=== PATIENT | female | born 1995 | race Two or more races ===

== ENCOUNTER 2021-11-21 10:16 | Emergency (ER) | payer OTHER, SELFPAY ==
--- NOTE | ~2021-11-21 | CT_ITS ---
EXAMINATION: CT LUMBAR SPINE WITHOUT CONTRAST CT SACRUM WITHOUT CONTRAST CLINICAL INFORMATION: Severe lower back and sacral pain. COMPARISON: None available. TECHNIQUE: Multidetector helical imaging of the lumbar spine and sacrum was obtained without intravenous contrast. Multiple axial reformats and coronal/sagittal reconstructions were created the technologist workstation for review. This CT examination was performed using dose optimization techniques as appropriate, variously including the following: *Automated exposure control. *Adjustment of mA and/or kV according to patient size (this includes techniques or standardized protocols for targeted exams where dose is matched to indication/reason for exam; i.e. extremities or head). *Use of iterative reconstruction technique. DLP: 894 mGy-cm FINDINGS: Mild left convex curvature of the lumbar spine. Straightening of the normal lumbar lordosis. Otherwise, normal anatomic alignment. Chronic-appearing limbus vertebra with well ossified osseous fragment along the anterior-superior corner of L4. No evidence of acute fracture or traumatic subluxation. The vertebral body heights are maintained. Moderate degenerative disc disease at L2-L3 and L3-L4. Mild degenerative disc disease at L5-S1. Normal alignment of the sacrum and coccyx. No cortical disruption to suggest acute fracture of the sacrum. Normal alignment of the sacroiliac joints. Mild subchondral sclerosis on the iliac sides of the sacroiliac joints bilaterally without overt erosions. No suspicious lytic or sclerotic osseous lesions. No significant abnormalities of the paraspinal musculature. There is a round lesion associated with the left ovary that is largely lipid rich with an internal soft tissue attenuating nodule, measuring nodule 3.7 x 3.5 x 4.2 cm. Otherwise, limited evaluation of the intra-abdominal structures without significant abnormalities. The abdominal aorta is of normal contour and caliber. AXIAL SPINAL LEVELS: L1-L2: Normal annular contour. There is mild bilateral facet joint arthropathy. There is no neural foraminal stenosis. There is no demonstrated spinal canal stenosis. L2-L3: Normal annular contour. There is mild bilateral facet joint arthropathy. There is no neural foraminal stenosis. There is no demonstrated spinal canal stenosis. L3-L4: Moderate diffuse disc bulge. There is moderate left and mild right facet joint arthropathy. There is mild left and no right neural foraminal stenosis. There is no demonstrated spinal canal stenosis. L4-L5: Mild diffuse disc bulge with superimposed shallow left foraminal disc protrusion. There is mild bilateral facet joint arthropathy. There is mild left and no right neural foraminal stenosis. There is no demonstrated spinal canal stenosis. L5-S1: Mild diffuse disc bulge with superimposed small central disc extrusion with mild inferior migration. There is mild bilateral facet joint arthropathy. There is mild left and no right neural foraminal stenosis. There is no demonstrated spinal canal stenosis. CT/CT lumbar spine wo con IMPRESSION: 1. No evidence of acute fracture or traumatic subluxation of the lumbar spine or sacrum. 2. Mild to moderate multilevel degenerative spondyloarthropathy of the lumbar spine as described in detail above. On this limited exam without intrathecal contrast, there is no demonstrated overt spinal canal stenosis. 3. There is a 4.2 cm lipid rich lesion associated with the left ovary suggestive of an underlying dermoid. Recommend further characterization with dedicated pelvic evaluation. This critical result was discussed with SALO Bahena at 14:27 on 11/21/2021 and it was ascertained that the content and urgency of the report was understood at the time of direct communication.
--- NOTE | ~2021-11-21 | US_ITS ---
EXAMINATION: US PELVIS CLINICAL INFORMATION: Characterized left ovarian mass COMPARISON: CT performed earlier same date. TECHNIQUE: Ultrasound of the pelvis is performed using both transabdominal and transvaginal transducers along with Doppler. Transvaginal imaging is performed due to inadequate visualization transabdominally. FINDINGS: Uterus: The uterus is anteverted and measures 8.3 x 2.6 x 3.6 cm. The double wall endometrial thickness is 0.5 mm. The uterus is smooth in contour and has normal myometrial echogenicity. No visible fibroid. Adnexa: Both ovaries are visualized. There is normal color flow to the adnexa. There is no ovarian torsion. There is no pelvic ascites or fluid collection. Right ovary measures 2.1 x 1.4 x 1.5 cm. Left ovary is splayed about 4.5 x 3.5 x 3.6 cm mass containing an echogenic eccentric focus compatible with multifocal fat surrounded by sebum containing fluid. 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 Given the typically slow rate of growth of such lesions, annual follow-up is recommended (while lesions are less than 7 cm).
--- NOTE | ~2021-11-21 | US_ITS ---
EXAMINATION: US PELVIS CLINICAL INFORMATION: Characterized left ovarian mass COMPARISON: CT performed earlier same date. TECHNIQUE: Ultrasound of the pelvis is performed using both transabdominal and transvaginal transducers along with Doppler. Transvaginal imaging is performed due to inadequate visualization transabdominally. FINDINGS: Uterus: The uterus is anteverted and measures 8.3 x 2.6 x 3.6 cm. The double wall endometrial thickness is 0.5 mm. The uterus is smooth in contour and has normal myometrial echogenicity. No visible fibroid. Adnexa: Both ovaries are visualized. There is normal color flow to the adnexa. There is no ovarian torsion. There is no pelvic ascites or fluid collection. Right ovary measures 2.1 x 1.4 x 1.5 cm. Left ovary is splayed about 4.5 x 3.5 x 3.6 cm mass containing an echogenic eccentric focus compatible with multifocal fat surrounded by sebum containing fluid. 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 Given the typically slow rate of growth of such lesions, annual follow-up is recommended (while lesions are less than 7 cm).
[2021-11-21 10:46] VITALS: BP 118/87; PULSE 86; RESP 16; TEMP 36.4; O2SAT 99; BMI 29.7
--- NOTE | 2021-11-21 11:12 | ED.BACK ---
HPI - Back Pain/Injury General Chief Complaint: Back Pain/Injury Stated Complaint: low back pain Time Seen by Provider: 11/21/21 10:58 Source: patient Mode of arrival: ambulatory Limitations: no limitations History of Present Illness HPI Narrative: 26-year-old female presents for low back pain that started 6 days ago. Patient was walking at her house, she hurt her back pop. The pain has been worsening, Tylenol is not helping. Patient has past medical history of lupus , with seizures when she was a child. The pain is severe and it hurts to move. No fevers, no numbness or tingling, no leg weakness, no saddle paresthesias, no incontinence of bowel or bladder, no urinary retention, no history of IV drug use, no past personal history of cancer. Related Data Previous Rx's Medication Instructions Recorded cyclobenzaprine 10 mg tablet 10 mg PO BEDTIME 5 days #5 tabs 11/21/21 ketorolac 10 mg tablet 10 mg PO TID 5 days #15 tabs 11/21/21 Allergies Allergy/AdvReac Type Severity Reaction Status Date / Time Sulfa (Sulfonamide Allergy Hives Verified 11/21/21 10:45 Antibiotics) Review of Systems Constitutional: Constitutional: Denies body ache(s), Denies chills, Denies fatigue, Denies fever(s), Denies malaise and Denies weakness Eyes: Eyes: Denies diplopia Cardiovascular: Cardiovascular: Denies chest pain, Denies syncope, Denies leg edema, Denies lightheadedness, Denies Loss of Consciousness, Denies palpitations and Denies dyspnea Respiratory: Respiratory: Denies chest congestion, Denies cough and Denies dyspnea Gastrointestinal: Gastrointestinal: Denies abdominal pain, Denies hematochezia, Denies constipation, Denies diarrhea, Denies nausea and Denies vomiting Musculoskeletal: Musculoskeletal: Reports back pain Neurologic: Denies confusion, Denies syncope and Denies weakness Psychiatric: Psychiatric: Denies anxiety, Denies confusion and Denies depression Endocrine: Endocrine: Denies fatigue and Denies palpitations [facility] Past Medical History [facility] Narrative: lupus Social History Social History Advance Directives: No Advance Directives Information Provided: No Physical Exam Vital Signs: Vital Signs: Last Vital Signs Temp 97.6 F 11/21/21 10:46 Pulse 86 11/21/21 10:46 Resp 16 11/21/21 10:46 BP 118/87 11/21/21 10:46 Pulse Ox 99 11/21/21 10:46 O2 Del Method 11/21/21 10:46 BMI result Body Mass Index 29.7 Const: General: No confusion Nutritional Appearance: well nourished Orientation/consciousness: No confusion Limitations: no limitations Eyes: Conjunctivae: conjunctivae normal Pupils: Equal, round and reactive pupils present EOM: EOMs intact bilaterally Neck: Neck: Yes full ROM, Yes no lymphadenopathy and Yes supple Resp: Effort & Inspection: normal respiratory effort and able to speak in complete sentences Auscultation: clear to auscultation bilaterally, no crackles, no rales, no rhonchi and no wheezes Cardio: Rate: regular rate Rhythm: regular rhythm Heart sounds: S1 normal heart sound present and S2 normal heart sound present GI: Inspection: Yes normal to inspection Palpation (GI): Soft to palpation, nontender, no guarding and not rigid Percussion: Yes normal to percussion Auscultation: normal bowel sounds : General: Yes no CVA tenderness Back/Spine/Pelvis: Back: no CVA tenderness Cervical Spine: normal cervical lordosis, cervical ROM normal, No Cervical spine tenderness, No step off deformity and No cervical ROM abnormal Thoracic/Lumbar Spine: No thoraco-lumbar spasm, No thoracic spinal tenderness, lumbar spinal tenderness at L4 and at L5 and straight leg raise positive bilateral Pelvis: no pain with anterior-posterior compression, no pain with lateral compression and buttock tenderness on the left Sacrum: tenderness midline Skin: General skin exam: no rashes or lesions noted Neuro: General: No confusion Cranial nerves: Yes Equal, round and reactive pupils present Extrem: General: Yes normal to inspection and Yes full ROM Psych: Appearance: grossly normal Affect: normal affect Attitude: cooperative Thought process: Normal thought process present Course Course Course Narrative: 26-year-old female presents for sudden atraumatic back pain that occurred 6 days ago and is worsening. On exam, patient has stable vitals, she is point tender over her L4-L5 vertebrae, tender over her midline sacrum. Patient has a positive bilateral straight leg raise, she is tender to palpate over her left buttock. Afebrile with stable vitals Reevaluation(s) Reevaluation #1: Radiologist called and stated that the lumbar spine and sacral spine look okay although there are degenerative changes. Stated that an incidental finding of a 3.5 cm lesion in the left ovary looked like a dermoid, with fatty tissue and internal nodules. Possibly malignant. Will get pelvic ultrasound, follow-up with OBGYN, patient says her pain is a little better with the oxycodone, gave ketorolac and Flexeril CT/CT lumbar spine wo con IMPRESSION: 1. No evidence of acute fracture or traumatic subluxation of the lumbar spine or sacrum. ? 2. Mild to moderate multilevel degenerative spondyloarthropathy of the lumbar spine as described in detail above. On this limited exam without intrathecal contrast, there is no demonstrated overt spinal canal stenosis. ? 3. There is a 4.2 cm lipid rich lesion associated with the left ovary suggestive of an underlying dermoid. Recommend further characterization with dedicated pelvic evaluation. ? This critical result was discussed with SALO Bahena at 14:27 on 11/21/2021 and it was ascertained that the content and urgency of the report was understood at the time of direct communication. Reevaluation #2: FINDINGS: Uterus: The uterus is anteverted and measures 8.3 x 2.6 x 3.6 cm. The double wall endometrial thickness is 0.5 mm.? The uterus is smooth in contour and has normal myometrial echogenicity. ? No visible fibroid. Adnexa: Both ovaries are visualized. There is normal color flow to the adnexa. There is no ovarian torsion.? There is no pelvic ascites or fluid collection. Right ovary measures 2.1 x 1.4 x 1.5 cm. Left ovary is splayed about 4.5 x 3.5 x 3.6 cm mass containing an echogenic eccentric focus compatible with multifocal fat surrounded by sebum containing fluid. 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 Given the typically slow rate of growth of such lesions, annual follow-up is recommended (while lesions are less than 7 cm). MDM - Back Pain/Injury Lab Data Labs: Lab Results 11/21/21 11/21/21 Range/Units 11:54 11:54 Urine Color YELLOW Urine Appearance CLEAR Urine pH 5.5 (5.0-8.0) Ur Specific [place] 1.010 (1.005-1.025) Urine Protein NEG (NEG-TRACE) MG/DL Urine Glucose (UA) NEG (NEG) MG/DL Urine Ketones NEG (NEG) MG/DL Urine Blood NEG (NEG) Urine Nitrite NEG (NEG) Ur Leukocyte Esterase NEG (NEG) Urine Test NEGATIVE (NEGATIVE) Discharge Plan Discharge Clinical Impression: Spondylo-arthropathy, Cyst, ovary, dermoid, Back pain Patient Disposition: Home, Self-Care Additional Instructions: Please call your primary care provider to follow up are your spine in addition if you do not hear from our BG and by tomorrow afternoon, please call them at the following number [phone] I have referred you to the OBGYN so they should be calling you Please take ketorolac as prescribed, please take Flexeril at night. Please do not take any ibuprofen containing products while you are taking the ketorolac Please return to emergency room for any new or concerning symptoms including leg weakness, incontinence of bowel or bladder, numbness or tingling in your groin, or fevers Prescriptions: New ketorolac 10 mg tablet 10 mg PO TID 5 Days Qty: 15 0RF cyclobenzaprine 10 mg tablet 10 mg PO BEDTIME 5 Days Qty: 5 0RF Referrals: Pratik Monge MD [Physician] - Stand Alone Forms: Work/School Release Interventions: ED Discharge Assessment Last Done: 11/21/21 17:46 Discharge Date/Time: 11/21/21 17:47
[2021-11-21] MEDS: oxyCODONE HCl Immed Release 5 MG TABLET 10 MG PO (11:27)
[2021-11-21 12:10] LABS: UPreg QC Valid YES; Urine Pregnancy NEGATIVE (NEGATIVE)
[2021-11-21 12:11] LABS: Appearance Urine CLEAR; Color Urine YELLOW; Glucose Urine UA NEG (NEG); Leukocyte Esterase Urine NEG (NEG); Nitrite Urine NEG (NEG); PH 5.5 (5.0-8.0); Urine Blood NEG (NEG); Urine Ketones NEG (NEG); Urine Protein NEG (NEG-TRACE)
[2021-11-21] MEDS: Cyclobenzaprine HCl 10 MG TABLET PO (15:21)
[2021-11-21] MEDS: Ketorolac Tromethamine 15 MG/ML VIAL IM (15:21)
== END 2021-11-21 17:47 | disposition home or self-care (01) ==
PROVIDERS: Physician Assistant; Emergency Provider Emergency Medicine
DX: M47.896 Other spondylosis, lumbar region (principal); N83.202 Unspecified ovarian cyst, left side; M54.50 Low back pain, unspecified; R10.2 Pelvic and perineal pain; Z79.899 Other long term (current) drug therapy
CPT/HCPCS: 72131; 72192; 76830; 76856; 81003; 81025; 93975; 96372; 99284; J1885

== ENCOUNTER 2021-12-18 11:42 | Outpatient (REF) | payer OTHER, SELFPAY ==
[2021-12-18 13:44] LABS: Lactate Dehydrogenase 205 U/L (122-220)
[2021-12-18 13:53] LABS: HCG Quantitative < 2 mIU/mL
[2021-12-18 19:47] LABS: CT PCR NOT DETECTED (Not Detect.); NG PCR NOT DETECTED (Not Detect.)
[2021-12-20 13:21] LABS: Alpha Fetoprotein 2.5 ng/mL
[2021-12-21 15:06] LABS: Anti-Mullerian Hormone-Female 0.66 ng/mL (0.69-13.39)
[2021-12-21 19:27] LABS: Inhibin B <10 pg/mL
== END 2021-12-18 11:43 | disposition home or self-care (01) ==
LOC: HO.LAB 11:42
PROVIDERS: Visit Provider Obstetrics & Gynecology
DX: Z32.02 Encounter for pregnancy test, result negative (principal); D27.9 Benign neoplasm of unspecified ovary
CPT/HCPCS: 36415; 81025; 82105; 82397; 83615; 84702; 86336; 87491; 87591; 99212

== ENCOUNTER 2022-03-20 18:35 | Emergency (ER) | payer OTHER, SELFPAY ==
[2022-03-20 18:47] VITALS: BP 95/70; PULSE 89; RESP 18; TEMP 36.1; O2SAT 98; BMI 31.3
--- NOTE | 2022-03-21 00:01 | ED_ITS ---
HPI - Back Pain/Injury General Chief Complaint: Back Pain/Injury Stated Complaint: left side lower back pain Time Seen by Provider: 03/20/22 23:49 Source: patient Limitations: no limitations History of Present Illness HPI Narrative: This is a 26-year-old female with history of lupus who complains of pain in her left lower back which began this morning when she got up and began walking. She felt a click in her back. She had had a similar experience in November and was seen here, had a CT scan that did show degenerative changes in her lumbar spine and sacroiliac joint. Patient that time was treated with ketorolac and Flexeril and had improvement in her symptoms. She does take prednisone 5 mg daily for her lupus. She denies any numbness or weakness in her legs. Pain is worst in the left sacroiliac area. She denies any abdominal pain. She notes that when she was evaluated here in November on the CT scan they did find an ovarian cyst-review the records reveal that it was a dermoid cyst. Related Data Home Medications Medication Instructions Recorded Confirmed hydroxychloroquine 200 mg tablet 200 mg PO DAILY 12/18/21 (Plaquenil) medroxyprogesterone 400 mg/mL 400 mg IM QWEEK 12/18/21 intramuscular suspension prednisone 10 mg tablet 5 mg PO DAILY 12/18/21 Previous Rx's Medication Instructions Recorded cyclobenzaprine 5 mg tablet 5 mg PO TID PRN muscle spasm #14 03/21/22 tabs ketorolac 10 mg tablet 10 mg PO Q6H PRN pain 5 days #20 03/21/22 tabs Allergies Allergy/AdvReac Type Severity Reaction Status Date / Time Sulfa (Sulfonamide Allergy Hives Verified 12/18/21 11:53 Antibiotics) Review of Systems Constitutional: Constitutional: Denies fever(s) Cardiovascular: Cardiovascular: Reports no additional cardiovascular complaints Respiratory: Respiratory: Reports no additional respiratory complaints Gastrointestinal: Gastrointestinal: Reports no additional gastrointestinal complaints Musculoskeletal: Musculoskeletal: Reports as per [facility] Past Medical History Medical History Lupus Social History Social History Patient Tobacco Use Status: Never used Tobacco Advance Directives: No Advance Directives Information Provided: No Physical Exam Vital Signs: Vital Signs: Last Vital Signs Temp 97.0 F 03/20/22 18:47 Pulse 89 03/20/22 18:47 Resp 18 03/20/22 18:47 BP 95/70 03/20/22 18:47 Pulse Ox 98 03/20/22 18:47 O2 Del Method 03/20/22 18:47 BMI result Body Mass Index 31.3 Const: Other: PERRLA Conj Beebe Mucous membranes moist Throat clear Neck supple Lungs CTA Heart RRR no murmurs rubs or gallops Abd soft, non tender, non distended Spine: Tender left sacroiliac joint area. Extremities no pitting edema Neuro alert and oriented x 3, non focal MDM - Back Pain/Injury MDM Narrative Medical decision making narrative: Old records were reviewed. CT scan had been done in November. No need for repeat imaging. No traumatic injury. Patient was treated with Ketoralac, and Valium, the latter p.o.. She has some proven in her symptoms. Will prescribe Ketoralac for 5 days, Flexeril. She can follow up with her analytics architect Discharge Plan Discharge Clinical Impression: Sacroiliac joint disease Patient Disposition: Home, Self-Care Prescriptions: New ketorolac 10 mg tablet 10 mg PO Q6H PRN (Reason: pain) 5 Days Qty: 20 0RF cyclobenzaprine 5 mg tablet 5 mg PO TID PRN (Reason: muscle spasm) Qty: 14 0RF No Action prednisone 10 mg tablet 5 mg PO DAILY hydroxychloroquine [Plaquenil] 200 mg tablet 200 mg PO DAILY medroxyprogesterone 400 mg/mL suspension 400 mg IM QWEEK
[2022-03-21] MEDS: diazePAM 2 MG TABLET 6 MG PO (00:20)
[2022-03-21] MEDS: Ketorolac Tromethamine 30 MG/ML VIAL IM (00:20)
== END 2022-03-21 01:03 | disposition home or self-care (01) ==
PROVIDERS: Emergency Provider Emergency Medicine; PCP Nurse Practitioner Family
DX: M53.3 Sacrococcygeal disorders, not elsewhere classified (principal); M54.50 Low back pain, unspecified; M32.9 Systemic lupus erythematosus, unspecified
CPT/HCPCS: 96372; 99283; 99284; J1885

== ENCOUNTER 2023-01-28 22:14 | Emergency (ER) | payer OTHER, SELFPAY ==
--- NOTE | ~2023-01-28 | MR_ITS ---
EXAMINATION: MR CERVICAL SPINE WITHOUT AND WITH CONTRAST CLINICAL INFORMATION: Left-sided neck pain, hand weakness, and numbness. COMPARISON: None available. TECHNIQUE: MRI of the cervical spine was performed with routine sequences without and with intravenous contrast. A total of 9 ml of Gadavist was intravenously administered. FINDINGS: The cervical vertebral bodies maintain normal heights and alignment. There is no significant disc height loss. No bone marrow edema is seen. The cord signal appears normal. There is no abnormal enhancement within the cervical spinal canal. The imaged intracranial contents and extraspinal soft tissues appear normal. SPINAL LEVELS: C2-C3: No posterior disc abnormality. No spinal canal or neural foraminal stenosis. C3-C4: No posterior disc abnormality. No spinal canal or neural foraminal stenosis. C4-C5: No posterior disc abnormality. No spinal canal or neural foraminal stenosis. C5-C6: Small central protrusion. No spinal canal or neural foraminal stenosis. C6-C7: No posterior disc abnormality. No spinal canal or neural foraminal stenosis. C7-T1: No posterior disc abnormality. No spinal canal or neural foraminal stenosis. MR/MR cervical spine wo/w con IMPRESSION: No significant abnormality in the cervical spine. Small central protrusion seen at C5-C6. No spinal canal or neural foraminal stenosis. No cord signal abnormality or abnormal enhancement.
--- NOTE | ~2023-01-28 | CT_ITS ---
EXAMINATION: CT ANGIOGRAM HEAD CT ANGIOGRAM NECK CLINICAL INFORMATION: Reason for Exam L facial numbness, neck pain, L hand numbness COMPARISON: None. TECHNIQUE: Initial noncontrast route salesman imaging of the head and neck was performed. Noncontrast head CT was also performed. Test bolus sequences followed by intravenous administration 70 mL of Omnipaque 350. Helical imaging was performed in the axial plane from the aortic arch to the skull vertex. Delayed postcontrast imaging of the head was also performed. The data was processed at the geospatial technologist's workstation for generation of MIP sequences. Angled MIPs and volume rendered reformatted images were also generated at an offline 3D workstation. Stenoses are assessed in accordance with NASCET criteria unless otherwise indicated. DLP: 2278.05 mGy-cm This CT examination was performed using dose optimization techniques as appropriate, variously including the following: *Automated exposure control. *Adjustment of mA and/or kV according to patient size (this includes techniques or standardized protocols for targeted exams where dose is matched to indication/reason for exam; i.e. extremities or head). *Use of iterative reconstruction technique. FINDINGS: CT Head: There is no evidence of acute intracranial hemorrhage or edematous territorial infarction. There is no abnormal attenuation within the brain parenchyma. [place]-white matter differentiation is preserved. The ventricles are normal in size and configuration. No evidence for obstructive hydrocephalus. No abnormal mass effect or midline shift. No extra-axial fluid collections. No pathologic intra-axial enhancement or regional oligemia. No acute soft tissue or osseous abnormalities. The mastoid air cells and paranasal sinuses are clear. CT Neck: The thyroid gland and remaining cervical soft tissues are within normal limits. No significant abnormalities of the cervical spine. There is bulky bilateral axillary lymphadenopathy. CT Upper Chest: The visualized lung apices and upper mediastinum are within normal limits, although suboptimally evaluated due to motion. Neck CTA: Aortic Arch: Normal contour and caliber. Classic 3 vessel branching pattern of the aortic arch. Great Vessel Origins: No significant stenosis of the branch origins. Right Common Carotid Artery: No focal stenosis or occlusion. Cervical Right Internal Carotid Artery: Normal opacification without focal stenosis or occlusion. Left Common Carotid Artery: No focal stenosis or occlusion. Cervical Left Internal Carotid Artery: Normal opacification without focal stenosis or occlusion. Cervical Right Vertebral Artery: No focal stenosis or occlusion. Cervical Left Vertebral Artery: Dominant. No focal stenosis or occlusion. Brain CTA: Intracranial Internal Carotid Arteries: No focal stenosis or occlusion. Right Anterior Cerebral Artery: Normal A1 segment. Normal opacification of the distal [place] segments. Left Anterior Cerebral Artery: Normal A1 segment. Normal opacification of the distal [place] segments. Anterior Communicating Artery: Normal. Right Middle Cerebral Artery: Normal M1 segment of the MCA without focal stenosis or occlusion. Normal arborization of the distal segments. Left Middle Cerebral Artery: Normal M1 segment of the MCA without focal stenosis or occlusion. Normal arborization of the distal segments. Right Vertebral Artery: Normal V4 segment. Left Vertebral Artery: Normal V4 segment. Basilar Artery: Normal without focal stenosis or occlusion. Normal appearance of the proximal superior cerebellar arteries. Right Posterior Cerebral Artery: Normal P1 segment. Normal opacification of the distal CASING [employer]ER segments. Left Posterior Cerebral Artery: Normal P1 segment. Normal opacification of the distal [place] [employer] segments. Normal opacification of the superior sagittal, straight, transverse, and sigmoid sinuses. CT/CT angio head neck IMPRESSION: 1. No acute intracranial abnormality including hemorrhage, mass effect, hydrocephalus, or acute territorial edematous infarction. 2. No arterial high grade stenosis or large vessel occlusion in the head or neck. No evidence of arterial dissection. 3. Bulky bilateral axillary lymphadenopathy of uncertain etiology. Recommend clinical correlation.
--- NOTE | ~2023-01-28 | CT_ITS ---
EXAMINATION: CT CHEST WITHOUT CONTRAST CLINICAL INFORMATION: Lymph node enlargement. COMPARISON: None available. TECHNIQUE: Multidetector volumetric CT imaging of the chest was done. Axial MIP volume rendering provided. Sagittal and coronal reformatted images were obtained. This CT examination was performed using dose optimization techniques as appropriate, variously including the following: *Automated exposure control *Adjustment of mA and/or kV according to patient size (this includes techniques or standardized protocols for targeted exams where dose is matched to indication/reason for exam; i.e. extremities or head) *Use of iterative reconstruction technique DLP: 292 mGy-cm FINDINGS: PIT SHOVEL OPERATOR: Remarkable LUNGS: The lungs are clear with no evidence of inflammation or nodules. MEDIASTINUM: The mediastinum is normal. CORONARY ARTERY CALCIFICATION: None visualized on this study. PLEURA: There is no pleural effusion. No pleural mass or thickening. AXILLA: There are enlarged axillary lymph nodes measuring up to 2.4 cm. UPPER ABDOMEN: Unremarkable. OSSEOUS STRUCTURES: Unremarkable. CT/CT chest wo IV con IMPRESSION: No active cardiopulmonary disease. Enlarged axillary lymph nodes measuring up to 2.4 cm. Clinical follow-up recommended. Fleischner guidelines were followed.
[2023-01-28 22:32] VITALS: BP 111/80; PULSE 85; RESP 16; TEMP 36.6; O2SAT 100; BMI 31.2
[2023-01-28 22:55] LABS: Hematocrit 38.4 % (37.0-47.0); Mean Corpuscular HGB Conc 33.9 g/dl (31.0-35.0); Mean Corpuscular Hemoglobin 28.4 pg (27.0-33.0); Mean Platelet Volume 9.8 fL (9.4-12.3); Platelet Count 260 X10*3/uL (160-400); Red Blood Count 4.57 X10*6/uL (4.20-5.50); Red Cell Distribution Width 13.2 % (11.0-16.0); White Blood Count 3.5 X10*3/uL (4.8-10.8)
[2023-01-28 23:09] LABS: Anion Gap 13 (12-20); Blood Urea Nitrogen 9 mg/dL (9-16); Calcium 10.1 mg/dL (8.4-10.2); Carbon Dioxide 25 mmol/L (22-29); Chloride 107 mmol/L (96-108); Creatinine Clr Calc Pharmacy 127.1; Estimated Glomerular Filt Rate > 60; Glucose Random 92 mg/dL (60-115); Potassium 3.8 mmol/L (3.3-5.1); Sodium 141 mmol/L (135-145)
[2023-01-29] VITALS (7 sets, daily range): BP systolic 91–107; BP diastolic 52–73; PULSE 66–86; RESP 14–18; TEMP 36.4–36.6; O2SAT 97–99
--- NOTE | 2023-01-29 00:32 | ED_ITS ---
HPI - Neuro Symptoms/Deficit General Chief Complaint: Neuro Symptoms/Deficit Stated Complaint: numbness to left side face, arms, fingers Time Seen by Provider: 01/28/23 23:54 Source: patient, family and old records reviewed Mode of arrival: ambulatory Limitations: no limitations History of Present Illness HPI Narrative: 27 yo female with hx of lupus on plaquenil and 5mg prednisone a day reports 1 week of L middle finger numbness and L hand pain that radiates up to the neck. it hurts to move the hand and neck. She denies fevers. She denies overuse at work. She states this has never happened before, no whiplash, neck pain, chiropractic work. She states she sought care today as around noon today her L face felt tingly and has not gone away. She has a mild headache too. Onset (ago): week(s) (1) Timing confirmed by: spouse Location: left face and left arm History of same: No Severity: moderate Quality: tingling and constant Relieving factors: none Exacerbating factors: none Context: gradual onset On Anticoagulants: No Associated symptoms: headaches and weakness Treatments Prior to Arrival: none Related Data Home Medications Medication Instructions Recorded Confirmed hydroxychloroquine 200 mg tablet 200 mg PO DAILY 12/18/21 (Plaquenil) medroxyprogesterone 400 mg/mL 400 mg IM QWEEK 12/18/21 intramuscular suspension prednisone 10 mg tablet 5 mg PO DAILY 12/18/21 Previous Rx's Medication Instructions Recorded cyclobenzaprine 5 mg tablet 5 mg PO TID PRN muscle spasm #14 03/21/22 tabs ketorolac 10 mg tablet 10 mg PO Q6H PRN pain 5 days #20 03/21/22 tabs Allergies Allergy/AdvReac Type Severity Reaction Status Date / Time Sulfa (Sulfonamide Allergy Hives Verified 01/28/23 22:37 Antibiotics) Review of Systems 2 Review of Systems: Constitutional : No Fever, No Chills, No Fatigue ENT/Mouth : No sore throat, No Rhinorrhea Eyes: No Eye Pain, No Swelling, No Redness Cardiovascular : No Chest Pain, No SOB, No Dyspnea on Exertion Respiratory : No Cough, No Sputum Gastrointestinal : No Nausea, No Vomiting, No Diarrhea, No abdominal Pain Genitourinary : No Dysuria, No Urinary Frequency, No Hematuria, Musculoskeletal : pos joint pain, No Myalgias, No Joint Swelling, pos neck pain Skin : No Skin Lesions, No rash Neuro : pos Weakness, pos Numbness, No Dizziness, positive Headache Psych : No Anxiety/Panic, No Depression Heme/Lymph: No Bruising, No Bleeding,No Lymphadenopathy Endocrine : No Polyuria, No Polydipsia All other systems reviewed and are negative PMFSH Past Medical History Attestation statement: The following information was validated with the patient. Medical History Lupus Social History Social History Patient Tobacco Use Status: Never used Tobacco Advance Directives: No Advance Directives Information Provided: No Physical Exam 2 Vital Signs: Vital Signs: Last Vital Signs Temp 97.9 F 01/29/23 00:31 Pulse 70 01/29/23 04:53 Resp 14 01/29/23 04:53 BP 91/52 L 01/29/23 04:53 Pulse Ox 98 01/29/23 04:53 O2 Del Method Room Air 01/29/23 04:53 BMI result Body Mass Index 31.2 Appearance: Alert. Oriented X3. No acute distress. Eyes: Pupils equal, round and reactive to light. ENT: Pharynx normal. Neck: no bruit, + spurling on L side CVS: Normal heart rate and rhythm. Pulses normal. Respiratory: No respiratory distress. Breath sounds normal. Abdomen: Soft and nontender. Skin: Skin warm and dry. Normal skin color. Normal skin turgor. Extremities: ttp in L arm 2+ radial pulse ttp in L forearm and L hand reproduces pain Neuro: Oriented X 3. states L side of face feels more diminished than R, L hand reports she cannot feel L finger unsure but athletics director is less 4/5 on L compared to right but unsure if this is due to pain Course Course Course Narrative: given CTA will obtain CT chest if that is not source I am going to obtain MRI of brain and neck Reevaluation(s) Reevaluation #1: Patient placed in physician observation at 456am. The indication for observation is that the patient needs more time to obtain MRI given symptoms - ordered for MRI. At this time the patient is well developed well nourished, lungs clear, CV RRR, abd nontender, neuro is unchanged. signed out to oncoming attending Medications Administered Discontinued Medications Generic Name Dose Route Start Last Admin Trade Name Cari PRN Reason Stop Dose Admin Iohexol 70 ml 01/29/23 02:39 01/29/23 02:40 Iohexol 350 Mg/Ml 100 Ml Infus..Btl IV 01/29/23 02:40 70 ml ONCE ONE Administration Morphine Sulfate 4 mg 01/29/23 01:01 01/29/23 01:55 Morphine Sulfate 4 Mg/Ml Cartridge IVPUSH 01/29/23 01:02 4 mg ONCE ONE Administration Protocol Ondansetron HCl 4 mg 01/29/23 01:01 01/29/23 01:55 Ondansetron Hcl 4 Mg/2 Ml Vial IVPUSH 01/29/23 01:02 4 mg ONCE ONE Administration Medical Decision Making Medical Decision Making [facility] Narrative: 27 yo female with PMH of lupus here with neck pain, facial numbness, one week of L middle finger numnbess pain and hand weakness vs pain on exam no swelling and pulse intact DVT and ischemia unlikely could be stroke vs radiculopathy vs dissection - radiculopathy seems more likely but the facial numbness is odd. I have ordered, labs IV morphine for pain and CTA of head and neck for dissection/stroke. Differential Diagnosis Differential Diagnoses: The differential diagnosis associated with the presentation includes cervical radiculopathy, dissection, given lupus could be stroke Admission/Observation Consideration of admission/observation: Escalation of care including admission/observation considered observe until MRI Lab Data [facility] Lab Attestation statement: I reviewed the patient's lab results. 01/28/23 22:45 01/28/23 22:45 Labs: Lab Results 01/28/23 Range/Units 22:45 WBC 3.5 L (4.8-10.8) X10*3/uL RBC 4.57 (4.20-5.50) X10*6/uL Hgb 13.0 (12.0-16.0) g/dl Hct 38.4 (37.0-47.0) % MCV 84.0 (80.0-98.0) fL MCH 28.4 (27.0-33.0) pg MCHC 33.9 (31.0-35.0) g/dl RDW 13.2 (11.0-16.0) % Plt Count 260 (160-400) X10*3/uL MPV 9.8 (9.4-12.3) fL Absolute Nucleated RBC 0.000 (0.0-0.012) X10*3/uL Nucleated RBC % (auto) 0.0 (0.0-0.2) /100WBC Sodium 141 (135-145) mmol/L Potassium 3.8 (3.3-5.1) mmol/L Chloride 107 (96-108) mmol/L Carbon Dioxide 25 (22-29) mmol/L Anion Gap 13 (12-20) BUN 9 (9-16) mg/dL Creatinine 0.76 (0.5-1.4) mg/dL Estim Creat Clear Calc 127.1 Estimated GFR > 60 Random Glucose 92 (60-115) mg/dL Calcium 10.1 (8.4-10.2) mg/dL Beta HCG, Quant < 2 mIU/mL Independent Interpretation I performed an independent interpretation of an: EKG and CT Scan (no dissection) Interpretation: Rate: 69 Rhythm: NSR Harvey: normal Normal P waves. Normal CHUCHO. Normal QRS complex. ST T wave : inverted t wave III, no ANDRES qTC: normal prior studies:no acute ischemia The study has been interpreted contemporaneously by me. . Radiology Impression Discussion of test interpretation with radiology: I have reviewed the radiologist's reading. Independent Historian Clinical information obtained from an independent historian. History obtained from or confirmed by: Spouse External Record Review External record reviewed: Inpatient record Discharge Plan Discharge Clinical Impression: Arm paresthesia, left, Cervical radiculopathy, Axillary adenopathy Patient Disposition: Still a Patient Prescriptions: No Action ketorolac 10 mg tablet 10 mg PO Q6H PRN (Reason: pain) 5 Days Qty: 20 0RF cyclobenzaprine 5 mg tablet 5 mg PO TID PRN (Reason: muscle spasm) Qty: 14 0RF prednisone 10 mg tablet 5 mg PO DAILY hydroxychloroquine [Plaquenil] 200 mg tablet 200 mg PO DAILY medroxyprogesterone 400 mg/mL suspension 400 mg IM QWEEK
[2023-01-29 00:44] LABS: HCG Quantitative < 2 mIU/mL
--- NOTE | 2023-01-29 00:58 | ECG_ITS ---
Test Reason : STROKE SYMPTOMS Blood Pressure : / mmHG Vent. Rate : 069 BPM Atrial Rate : 069 BPM P-R Int : 124 ms QRS Dur : 084 ms QT Int : 392 ms P-R-T Axes : 024 014 017 degrees QTc Int : 420 ms Normal sinus rhythm Normal ECG No previous ECGs available Referred By: Cece Lo Electronically Signed By:GABE RED
[2023-01-29] MEDS: ondansetron HCL 4 MG/2 ML VIAL IVPUSH (01:55)
[2023-01-29] MEDS: Morphine Sulfate 4 MG/ML CARTRIDGE IVPUSH ×3 (01:55→15:23)
[2023-01-29] MEDS: iohexoL 350 MG/ML 100 ML INFUS..BTL 70 ML IV (02:40)
[2023-01-29] MEDS: Ketorolac Tromethamine 15 MG/ML VIAL IVPUSH (05:34)
[2023-01-29] MEDS: 0.9 % Sodium Chloride 1,000 ML 999 ML IV (07:12)
--- NOTE | 2023-01-29 07:30 | PC.NURSE ---
axox4, vss, neuros intact, respirations even and unlabored. pt reporting 5/10 L. sided neck pain; pain down L. arm and leg improved per pt; strength equal and strong bilat. ivf infusing. call bowens within reach.
--- NOTE | 2023-01-29 11:23 | PC.NURSE ---
no changes to neuros from previous assessment by this RN.
--- NOTE | 2023-01-29 18:03 | PC.NURSE ---
pt at mri at this time; via wheelchair with vitaliy transporter.
[2023-01-29] MEDS: gadobutroL 10 ML VIAL IVPUSH (18:29)
== END 2023-01-29 19:55 | disposition home or self-care (01) ==
PROVIDERS: Emergency Medicine; Emergency Provider Emergency Medicine; PCP Nurse Practitioner Family
DX: M54.12 Radiculopathy, cervical region (principal); R59.0 Localized enlarged lymph nodes; R20.2 Paresthesia of skin; R20.0 Anesthesia of skin; M32.14 Glomerular disease in systemic lupus erythematosus; Z79.899 Other long term (current) drug therapy
CPT/HCPCS: 36415; 70496; 70498; 71250; 72156; 80048; 84702; 85027; 93005; 96361; 96374; 96375; 96376; 99285; A9585; J1885; J2270; J2405; Q9967

== ENCOUNTER 2023-03-19 14:19 | Outpatient (REF) | payer OTHER, SELFPAY ==
[2023-03-19 17:36] LABS: Basophils Percent Auto 0.3 % (0-2); Eosinophils Absolute Auto 0.1 X10*3/uL (0.0-0.4); Eosinophils Percent Auto 1.7 % (0-4); Hematocrit 39.8 % (37.0-47.0); Hemoglobin 13.3 g/dl (12.0-16.0); Imm Gran Abs Auto 0.01 X10*3/uL (0.00-0.03); Imm Gran Pct Auto 0.3 % (0.0-0.4); Lymphocytes Absolute Auto 1.2 X10*3/uL (1.2-4.9); Lymphocytes Percent Auto 40.6 % (20-40); MANUAL DIFF FLAG SCAN; Mean Corpuscular HGB Conc 33.4 g/dl (31.0-35.0); Mean Corpuscular Hemoglobin 27.9 pg (27.0-33.0); Mean Corpuscular Volume 83.4 fL (80.0-98.0); Mean Platelet Volume 10.1 fL (9.4-12.3); Monocytes Absolute Auto 0.2 X10*3/uL (0.1-1.2); Monocytes Percent Auto 7.4 % (2-11); Neutrophils Absolute Auto 1.5 x10*3/uL (2.0-8.3); Neutrophils Percent Auto 49.7 % (45-73); Platelet Count 235 X10*3/uL (160-400); Red Blood Count 4.77 X10*6/uL (4.20-5.50); Red Cell Distribution Width 13.2 % (11.0-16.0); SCAN SMEAR FLAG 1
[2023-03-19 17:37] LABS: Appearance Urine Clear; Color Urine Yellow; Glucose Urine UA Negative (Negative); Leukocyte Esterase Urine Negative (Negative); Nitrite Urine Negative (Negative); PH 5.5 (5.0-9.0); Specific Gravity - Urine <= 1.005 (1.005-1.025); UMIC TRIGGER UA YES; Urine Blood Moderate (2+) (Negative); Urine Ketones Negative (Negative); Urine Protein Negative (Neg-Trace)
[2023-03-19 17:51] LABS: Rheumatoid Factor < 13.0 IU/mL (<15.0)
[2023-03-19 17:53] LABS: Bacteria Urine None Seen (None Seen); Hyaline Casts Urine 0-2 /LPF (0-2); Squamous Epithelial Cell Urine 0-2 /HPF (0-2); WBC Urine 0-5 /HPF (0-5)
[2023-03-19 17:55] LABS: Creatinine Urine 44.08 mg/dL; Total Protein Urine Random < 7 mg/dL (<12)
[2023-03-19 17:58] LABS: Alanine Aminotransferase 21 U/L (0-31); Alkaline Phosphatase 67 U/L (39-117); Anion Gap 14 (12-20); Aspartate Amino Transferase 24 U/L (5-31); Bilirubin Total 0.5 mg/dL (0.0-1.0); Blood Urea Nitrogen 9 mg/dL (9-16); C Reactive Protein < 0.10 mg/dL (< or = 0.50); Calcium 10.1 mg/dL (8.4-10.2); Carbon Dioxide 24 mmol/L (22-29); Chloride 106 mmol/L (96-108); Estimated Glomerular Filt Rate > 60; Glucose Random 83 mg/dL (60-115); Potassium 3.7 mmol/L (3.3-5.1); Sodium 140 mmol/L (135-145); Total Protein 8.3 g/dL (6.5-8.0)
[2023-03-19 18:10] LABS: SLIDE REVIEW VERIFIED
[2023-03-19 18:33] LABS: Erythrocyte Sedimentation Rate 14 MM/HR (0-20)
[2023-03-20 13:14] LABS: Cardiolipin IgG Ab 5.5 GPL-U/mL; Cardiolipin IgM Ab <2.0 MPL-U/mL
[2023-03-21 23:02] LABS: TS Negative Control Passed; TS Panel A 0; TS Panel B 0; TS Positive Control Passed; TSpotTB Negative (Negative)
[2023-03-23 05:14] LABS: HBS Num1 5.54 mIU/mL (0-7.99); HBc Num1 0.09 S/CO (0.00-0.79); HBsAGNum1 0.53 S/CO (0.00-0.99); Hepatitis B Core Antibody Nonreactive (Nonreactive); Hepatitis B Surface Antigen Negative (Negative); ~HepC Num1 0.06 S/CO (0.00-0.79); ~Hepatitis A Antibody IgM Nonreactive (Nonreactive); ~Hepatitis B Surface Antibody NONREACTIVE (Nonreactive); ~Hepatitis C Antibody Nonreactive (Nonreactive)
[2023-03-23 11:48] LABS: Complement C3 92 mg/dL (83-193)
[2023-03-23 18:29] LABS: Cyclic Citrullinated Peptide <16 UNITS
[2023-03-23 23:09] LABS: Prot Elec - Albumin 4.9 g/dL (3.8-4.8); Prot Elec - Alpha1 0.3 g/dL (0.2-0.3); Prot Elec - Alpha2 0.6 g/dL (0.5-0.9); Prot Elec - Beta 1 0.5 g/dL (0.4-0.6); Prot Elec - Beta 2 0.4 g/dL (0.2-0.5); Prot Elec - Gamma 1.4 g/dL (0.8-1.7)
[2023-03-24 11:28] LABS: IgA 384 mg/dL (47-310); IgG 1447 mg/dL (600-1640); IgM 125 mg/dL (50-300)
[2023-03-24 13:14] LABS: Anti DNA DS Antibody 21 IU/mL; Antibody to SS-A Antigen <1.0 NEG AI (<1.0 NEG); Antibody to SS-B Antigen <1.0 NEG AI (<1.0 NEG); SM/Ribonucleoprotein Ab >8.0 POS AI (<1.0 NEG); Smith Protein >8.0 POS AI (<1.0 NEG)
[2023-03-25 09:59] LABS: Beta-2 Glycoprotein IgA 11.2 U/mL (<20.0); Beta-2 Glycoprotein IgG 18.9 U/mL (<20.0); Beta-2 Glycoprotein IgM <2.0 U/mL (<20.0)
[2023-03-25 14:43] LABS: DNAds, Crithidia Antibody Positive (Negative)
[2023-03-26 15:12] LABS: PTT (LAC) Screen 35 sec (<=40)
[2023-03-26 22:09] LABS: TPMT Activity 15
== END 2023-03-19 14:20 | disposition home or self-care (01) ==
LOC: HO.LAB 14:19
PROVIDERS: PCP Nurse Practitioner Family; Visit Provider Student in an Organized Health Care Education/Training Program
DX: M32.9 Systemic lupus erythematosus, unspecified (principal); M25.50 Pain in unspecified joint; D68.61 Antiphospholipid syndrome; Z79.52 Long term (current) use of systemic steroids; Z11.59 Encounter for screening for other viral diseases; Z11.7 Encounter for testing for latent tuberculosis infection; Z79.624 Long term (current) use of inhibitors of nucleotide synthesis; Z79.899 Other long term (current) drug therapy
CPT/HCPCS: 36415; 80053; 81001; 82570; 82784; 84156; 84165; 84433; 85025; 85597; 85598; 85613; 85652; 85730; 86140; 86146; 86147; 86160; 86200; 86225; 86235; 86255; 86334; 86431; 86481; 86704; 86706; 86709; 86803; 87340; 99202

== ENCOUNTER 2023-03-19 14:19 | Outpatient (AMB) | payer OTHER, SELFPAY ==
[2023-03-19 14:56] VITALS: BP 122/70; PULSE 93; TEMP 36.6; O2SAT 98; BMI 29.8
--- NOTE | 2023-03-19 14:56 | MHC.OFFVIS ---
Intake Vital Signs 03/19/23 14:56 Height 5 ft 7 in Weight 190 lb 7.67 oz BMI 29.8 BP 122/70 Blood Pressure Location Rt brachial Position Sitting Pulse 93 Pulse Source Pulse Oximeter Temp 97.8 F Temp Source Skin Pulse Oximetry (%) 98 Intake Visit Reasons: SLE Intake Note: New pt presents today for consult. C/o joint pain, skin rash. Previously followed by [facility]. Has been out of medications for a long time. Would like to discuss medication/treatment Tank Pumper Required: No Accompanied by: Self / Same As Patient Allergies Sulfa (Sulfonamide Antibiotics) Allergy (Verified 03/19/23 15:01) Hives Medication List - Last Reconciled 03/19/23 by Meera Chatterjee MD hydroxychloroquine (Plaquenil) 200 mg PO DAILY medroxyprogesterone 400 mg IM QWEEK triamcinolone acetonide 0.1% 1 appl topical BID-TID HPI HPI Comments History of Present Illness Details This is at 27-year-old female with SLE who presents as a new patient. 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 Patient was diagnosed with SLE back in 2013. 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 Patient was maintained on hydroxychloroquine 200 mg Twice daily Prednisone 125 mg daily and CellCept 2500 mg daily. Patient apparently had been off CellCept since about 2019. Patient was for about 2 months in 2018 while on CellCept. She had 1 in total and 1 miscarriage. She is unaware of any history of DVT/PE. Patient had not been on any treatment for her SLE for the last 1-2 years as she did not have a machine records units supervisor. She also had not seen Dr. German (nephrology) in a long time. She states that she has a follow-up appointment in May. She mentions that she had lost 30 lb over the last 5-6 months by diet and exercise. She states that she is having diffuse pain especially in her wrists, hands, ankles, knees. The pain is worse in the morning. Associated stiffness that can last a few hours. Over the last month or so she has been having an itchy rash on her right ear and right index. She was prescribed triamcinolone cream by her PCP which helped with the itching but the rash remains. She also mentions that for years her fingers and toes are cold and change color in the cold. She denies any fevers. She denied any oral ulcers. She states however that for many years she gets gum bleeding when brushing her teeth. She denies any blood or froth in urine [facility] Medical History (Updated 03/19/23 @ 16:01 by Meera Chatterjee MD) Nephritis Lupus Surgical History No history of previous surgery Family History Other Family history of heart disease Family hx-breast malignancy Social History Alcohol intake: current Alcohol intake frequency: does not drink Patient Tobacco Use Status: Never used Tobacco Female Reproductive History Menstrual Age of Menarche: 11 Total pregnancies: 1 Ab spontaneous: 0 Review of Systems Const Reports weight loss (Intentional) Musc Reports myalgias, Reports arthralgias and Reports stiffness Skin/Breast Reports pruritus, Reports rash and Reports unusual bruising Physical Exam Vital Signs: Last Vital Signs Temp 97.8 F 03/19/23 14:56 Pulse 93 03/19/23 14:56 BP 122/70 03/19/23 14:56 Pulse Ox 98 03/19/23 14:56 BMI result Body Mass Index 29.8 Const General: cooperative and healthy appearing Nutritional Appearance: overweight Orientation/consciousness: patient oriented x3 Limitations: no limitations HEENT Head: Yes normocephalic and Yes atraumatic Mouth: moist mucous membranes Resp Effort & Inspection: normal respiratory effort and able to speak in complete sentences Auscultation: clear to auscultation bilaterally Cardio Rate: regular rate Rhythm: regular rhythm Heart sounds: S1 normal heart sound present GI Inspection: No distended Palpation (GI): Soft to palpation Skin Other: Neuro General: patient oriented x3 Extrem Other: Bilateral wrist tenderness to palpation and pain with flexion and extension Mild Right 3rd MCP swelling Bilateral diffusely tender MCPs, PIP is and DIP is Normal nailfold capillaroscopy Bilateral ankle tenderness to palpation , without swelling Bilateral knee pain with flexion new Results Reviewed Results Reviewed: Labs 06/2020? DsDNA 37 (elevated) Lupus anticoagulant negative? Beta 2 glycoprotein IgG, IGA, IgM/anti cardiolipin IGG, IgA, IgM negative C3 68 low? UPCr: 0.1 normal Vitamin-D 17.6 CMP unremarkable Urinalysis is normal? ESR 3 CBC unremarkable Labs 01/2023 ESR 14? CRP undetectable CMP unremarkable CBC mild leukopenia at 3.6 with no neutropenia or lymphopenia Assessment & Plan Assessment & Plan (1) Lupus: Comment: dx 2013 +++DEMOND+++DsDNA, leukopenia, oral ulcers, inflammatory arthritis, rash on back suspicious for discoid lupus, class IV nephritis bx 2014, possible raynaud's ON HCQ since 2013 then lost to f/u MMF since 2013 or 2014 stopped around 2019 PDN 1-5 mg daily since then, then lost to f/u Code(s): M32.9 - Systemic lupus erythematosus, unspecified Plan: This is a 27-year-old female with SLE who presents as a new patient. 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 Patient was diagnosed around 2013 and was on hydroxychloroquine 200 mg Twice daily, prednisone 1-5 mg daily and CellCept 2500 mg daily. Per chart review. CellCept was discontinued . Patient is currently off all her meds including hydroxychloroquine and prednisone. Check labs to evaluate disease activity. Restart hydroxychloroquine 200 mg Twice daily. Start prednisone 5 mg daily for 2 weeks then 2.5 mg daily until next visit Patient states that she is currently getting the Depo medroxyprogesterone shot for contraception and would like to know whether she should continue. Will check antiphospholipid antibodies and discuss next visit Follow-up in 1 month (2) Long-term use of hydroxychloroquine: Code(s): Z79.899 - Other rouge sifter and miller (current) drug therapy Plan: Patient stated that she would see her gasateria attendant regularly for Plaquenil screening when she was taking Plaquenil. She does not remember their name. She will look at her records and let me know next visit Plan I spent 47 minutes reviewing patient's chart, evaluating patient, ordering diagnostic workup, counseling patient and documenting in the chart Orders: Orders Complete Blood Count Auto Diff Today M32.9 - Systemic lupus erythematosus, unspecified Erythrocyte Sedimentation Rate Today M32.9 - Systemic lupus erythematosus, unspecified Hepatitis A,B,C Profile Today Z11.59 - Encounter for screening for other viral diseases T Spot TB Today Z11.7 - Encounter for testing for latent tuberculosis infection Anti Extractable Nuclear Ag Today M32.9 - Systemic lupus erythematosus, unspecified Anti DNA DS Antibody Today M32.9 - Systemic lupus erythematosus, unspecified Complement C4 Today M32.9 - Systemic lupus erythematosus, unspecified UA w Microscopic Today M32.9 - Systemic lupus erythematosus, unspecified Rheumatoid Factor Today M25.50 - Pain in unspecified joint Thiopurine Methyltransferase Today Z79.624 - biometrics specialist (current) use of inhibitors of nucleotide synthesis Comprehensive Met. Panel Today M32.9 - Systemic lupus erythematosus, unspecified C Reactive Protein Today M32.9 - Systemic lupus erythematosus, unspecified Immunofixation Pnl, Serum Today M32.9 - Systemic lupus erythematosus, unspecified Protein Electrophoresis, Serum Today M32.9 - Systemic lupus erythematosus, unspecified Complement C3 Today M32.9 - Systemic lupus erythematosus, unspecified DNA Double Stranded-Crithidia Today M32.9 - Systemic lupus erythematosus, unspecified Protein Creatinine Ratio, Ur Today M32.9 - Systemic lupus erythematosus, unspecified Sjogren's Antibodies Today M32.9 - Systemic lupus erythematosus, unspecified Beta-2 Glycoprotein Antibody Today D68.61 - Antiphospholipid syndrome Cardiolipin Antibodies Today D68.61 - Antiphospholipid syndrome Lupus Anticoagulant Panel Today D68.61 - Antiphospholipid syndrome Cyclic Citrullinated Peptide Today M25.50 - Pain in unspecified joint Medications: New prednisone Take 2 tabs by mouth once daily for 2 weeks then remain on 1 tab daily 90 tabs 0RF Changed From hydroxychloroquine (Plaquenil) 200 mg PO DAILY To hydroxychloroquine (Plaquenil) 200 mg PO BID 180 tabs 1RF Coding Level of Care Code New Pt Level 4 (44633) Diagnoses Lupus M32.9 Long-term use of hydroxychloroquine Z79.895
== END 2023-03-19 15:45 | disposition home or self-care (01) ==
PROVIDERS: PCP Nurse Practitioner Family; Visit Provider Student in an Organized Health Care Education/Training Program
DX: M32.9 Systemic lupus erythematosus, unspecified (principal); Z79.899 Other long term (current) drug therapy
CPT/HCPCS: 99204

== ENCOUNTER 2023-05-05 15:22 | Outpatient (AMB) | payer OTHER, SELFPAY ==
--- NOTE | 2023-05-05 15:46 | A.OFFVIS_ITS ---
Intake Vital Signs 05/05/23 15:50 Height 5 ft 7 in Weight 187 lb 2.759 oz BMI 29.3 BP 110/80 Blood Pressure Location Lt brachial Position Sitting Pulse 99 Pulse Source Pulse Oximeter Temp 97 F Temp Source Skin Pulse Oximetry (%) 100 Oxygen Delivery Method Room Air Intake Visit Reasons: SLE Intake Note: Pt last seen 03/19/23 presents today for follow up and test results. Pollution Control Technician Required: No Accompanied by: Self / Same As Patient Allergies Sulfa (Sulfonamide Antibiotics) Allergy (Verified 05/05/23 15:51) Hives Medication List - Last Reconciled 05/05/23 by Meera Chattrejee MD hydroxychloroquine (Plaquenil) 200 mg PO BID medroxyprogesterone 400 mg IM QWEEK prednisone Take 2 tabs by mouth once daily for 2 weeks then remain on 1 tab daily triamcinolone acetonide 0.1% 1 appl topical BID-TID HPI HPI Comments History of Present Illness Details 27-year-old female with SLE returns for follow-up. On hydroxychloroquine 20 mg Twice daily and prednisone 2.5 mg daily. She states that she has good and bad days but overall she feels better especially in terms of her joint pain. Initial history: This is at 27-year-old female with SLE who presents as a new patient. Her previous financial services sales representative left the practice. Patient was diagnosed with SLE back in 2013. 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 Patient was maintained on hydroxychloroquine 200 mg Twice daily Prednisone 125 mg daily and CellCept 2500 mg daily. Patient apparently had been off CellCept since about 2019. Patient was for about 2 months in 2018 while on CellCept. She had 1 in total and 1 miscarriage. She is unaware of any history of DVT/PE. Patient had not been on any treatment for her SLE for the last 1-2 years as she did not have a financial services sales representative. She also had not seen Dr. German (nephrology) in a long time. She states that she has a follow-up appointment in May. She mentions that she had lost 30 lb over the last 5-6 months by diet and exercise. She states that she is having diffuse pain especially in her wrists, hands, ankles, knees. The pain is worse in the morning. Associated stiffness that can last a few hours. Over the last month or so she has been having an itchy rash on her right ear and right index. She was prescribed triamcinolone cream by her PCP which helped with the itching but the rash remains. She also mentions that for years her fingers and toes are cold and change color in the cold. She denies any fevers. She denied any oral ulcers. She states however that for many years she gets gum bleeding when brushing her teeth. She denies any blood or froth in urine [facility] Medical History Nephritis Lupus Surgical History No history of previous surgery Family History Other Family history of heart disease Family hx-breast malignancy Social History Alcohol intake: current Alcohol intake frequency: does not drink Patient Tobacco Use Status: Never used Tobacco Female Reproductive History Menstrual Age of Menarche: 11 Review of Systems Musc Reports arthralgias Physical Exam Vital Signs: Last Vital Signs Temp 97 F 05/05/23 15:50 Pulse 99 05/05/23 15:50 BP 110/80 05/05/23 15:50 Pulse Ox 100 05/05/23 15:50 Oxygen Delivery Method Room Air 05/05/23 15:50 BMI result Body Mass Index 29.3 Const General: cooperative and healthy appearing Nutritional Appearance: overweight Orientation/consciousness: patient oriented x3 Limitations: no limitations HEENT Head: Yes normocephalic and Yes atraumatic Mouth: moist mucous membranes Resp Effort & Inspection: normal respiratory effort and able to speak in complete sentences Auscultation: clear to auscultation bilaterally Cardio Rate: regular rate Rhythm: regular rhythm Heart sounds: S1 normal heart sound present GI Inspection: No distended Palpation (GI): Soft to palpation Skin Other: Rash on right ear resolved Neuro General: patient oriented x3 Extrem Other: No active synovitis today Normal nailfold capillaroscopy Results Reviewed Results Reviewed: Labs 06/2020? DsDNA 37 (elevated) Lupus anticoagulant negative? Beta 2 glycoprotein IgG, IGA, IgM/anti cardiolipin IGG, IgA, IgM negative C3 68 low? UPCr: 0.1 normal Vitamin-D 17.6 CMP unremarkable Urinalysis is normal? ESR 3 CBC unremarkable Labs 01/2023 ESR 14? CRP undetectable CMP unremarkable CBC mild leukopenia at 3.6 with no neutropenia or lymphopenia Assessment & Plan Assessment & Plan (1) Lupus: Comment: dx 2013 +++DEMOND+++DsDNA, leukopenia, oral ulcers, inflammatory arthritis, rash on back suspicious for discoid lupus, class IV nephritis bx 2014, possible raynaud's ON HCQ since 2013 then lost to f/u MMF since 2013 or 2014 stopped around 2019 PDN 1-5 mg daily since then, then lost to f/u HCQ restarted 03/2023 + PDN 2.5 mg Code(s): M32.9 - Systemic lupus erythematosus, unspecified Plan: This is a 27-year-old female with SLE who presents for follow-up. She is on proxy chloroquine to 1 mg Twice daily and prednisone 2.5 mg daily Patient was diagnosed around 2013 and was on hydroxychloroquine 200 mg Twice daily, prednisone 1-5 mg daily and CellCept 2500 mg daily. Per chart review. CellCept was discontinued . Today patient is doing much better overall there are no tender joints on exam, no active rashes, labs with normal inflammatory markers, no proteinuria, dsDNA elevated. Continue hydroxychloroquine 200 mg Twice daily. Continue prednisone 2.5 mg daily for 1 more month then reduce to 1.25 mg daily Labs before next visit in 3 months (2) Long-term use of hydroxychloroquine: Code(s): Z79.899 - Other intermediate manager (current) drug therapy Plan: Patient stated that she would see her psychopaedic nurse regularly for Plaquenil screening when she was taking Plaquenil. She does not remember their name. Advised patient to go back to her psychopaedic nurse and ask them to send me their office notes (3) Encounter for counseling regarding contraception: Code(s): Z30.09 - Encounter for other general counseling and advice on contraception Plan: Per patient she was using the Depo progesterone shots last year and a worked quite well for her and she would like to restart. She was recently evaluated by OBGYN and was told to check with rheumatology 1st Patient has normal inflammatory markers, she does not have any active lupus on exam. Her SLE is well controlled. Her antiphospholipid antibodies are negative. There is no known history of DVT/PE or recurrent miscarriages Depo medroxyprogesterone can be used. There is no contraindication to it at this point. Any estrogen containing contraceptives would not be preferred. Patient does not know the name of her OBGYN. I asked patient to call our office and we can send our office Plan I spent 27 minutes reviewing patient's chart, evaluating patient, ordering diagnostic workup, counseling patient and documenting in the chart Orders: Orders Anti DNA DS Antibody 3 Months M32.9 - Systemic lupus erythematosus, unspecified Complement C3 3 Months M32.9 - Systemic lupus erythematosus, unspecified Erythrocyte Sedimentation Rate 3 Months M32.9 - Systemic lupus erythematosus, unspecified C Reactive Protein 3 Months M32.9 - Systemic lupus erythematosus, unspecified Complete Blood Count Auto Diff 3 Months M32.9 - Systemic lupus erythematosus, unspecified Complement C4 3 Months M32.9 - Systemic lupus erythematosus, unspecified Protein Creatinine Ratio, Ur 3 Months M32.9 - Systemic lupus erythematosus, unspecified UA w Microscopic 3 Months M32.9 - Systemic lupus erythematosus, unspecified Comprehensive Met. Panel 3 Months M32.9 - Systemic lupus erythematosus, unspecified Coding Level of Care Code Est Pt Level 4 (24401) Diagnoses Lupus M32.9 Long-term use of hydroxychloroquine Z79.899 Encounter for counseling regarding contraception Z30.09
[2023-05-05 15:50] VITALS: BP 110/80; PULSE 99; TEMP 36.1; O2SAT 100; BMI 29.3
== END 2023-05-05 16:11 | disposition home or self-care (01) ==
PROVIDERS: PCP Nurse Practitioner Family; Visit Provider Student in an Organized Health Care Education/Training Program
DX: M32.9 Systemic lupus erythematosus, unspecified (principal); Z79.899 Other long term (current) drug therapy; Z30.09 Encounter for other general counseling and advice on contraception
CPT/HCPCS: 99214

== ENCOUNTER → 2023-05-05 15:22 | Outpatient (BNVA) | payer OTHER, SELFPAY | PROVIDERS: PCP Nurse Practitioner Family; Visit Provider Student in an Organized Health Care Education/Training Program | DX: M32.9 Systemic lupus erythematosus, unspecified (principal); Z30.09 Encounter for other general counseling and advice on contraception; Z79.899 Other long term (current) drug therapy | CPT/HCPCS: 99212 ==

== ENCOUNTER 2023-08-03 14:22 | Outpatient (REF) | payer OTHER, SELFPAY ==
[2023-08-03 14:43] LABS: MANUAL DIFF FLAG NO
[2023-08-03 14:50] LABS: Basophils Percent Auto 0.5 % (0-2); Eosinophils Absolute Auto 0.1 X10*3/uL (0.0-0.4); Eosinophils Percent Auto 2.5 % (0-4); Hematocrit 38.3 % (37.0-47.0); Imm Gran Abs Auto 0.02 X10*3/uL (0.00-0.03); Imm Gran Pct Auto 0.5 % (0.0-0.4); Lymphocytes Absolute Auto 1.3 X10*3/uL (1.2-4.9); Lymphocytes Percent Auto 31.7 % (20-40); Mean Corpuscular HGB Conc 33.9 g/dl (31.0-35.0); Mean Corpuscular Hemoglobin 28.7 pg (27.0-33.0); Mean Corpuscular Volume 84.5 fL (80.0-98.0); Mean Platelet Volume 9.5 fL (9.4-12.3); Monocytes Absolute Auto 0.3 X10*3/uL (0.1-1.2); Monocytes Percent Auto 6.2 % (2-11); Neutrophils Absolute Auto 2.4 x10*3/uL (2.0-8.3); Neutrophils Percent Auto 58.6 % (45-73); Platelet Count 228 X10*3/uL (160-400); Red Blood Count 4.53 X10*6/uL (4.20-5.50); Red Cell Distribution Width 13.2 % (11.0-16.0)
[2023-08-03 15:31] LABS: Erythrocyte Sedimentation Rate 9 MM/HR (0-20)
[2023-08-03 15:36] LABS: Alanine Aminotransferase 25 U/L (0-31); Albumin Level 4.4 g/dL (3.5-5.0); Alkaline Phosphatase 70 U/L (39-117); Anion Gap 11 (12-20); Aspartate Amino Transferase 23 U/L (5-31); Bilirubin Total 0.2 mg/dL (0.0-1.0); Blood Urea Nitrogen 8 mg/dL (9-16); C Reactive Protein < 0.04 mg/dL (< or = 0.50); Calcium 9.3 mg/dL (8.4-10.2); Carbon Dioxide 23 mmol/L (22-29); Chloride 108 mmol/L (96-108); Estimated Glomerular Filt Rate > 60; Glucose Random 88 mg/dL (60-115); Potassium 3.9 mmol/L (3.3-5.1); Sodium 138 mmol/L (135-145); Total Protein 7.4 g/dL (6.5-8.0)
[2023-08-03 16:28] LABS: Appearance Urine Clear; Color Urine Yellow; Glucose Urine UA Negative (Negative); Leukocyte Esterase Urine Trace (Negative); Nitrite Urine Negative (Negative); PH 5.5 (5.0-9.0); Specific Gravity - Urine 1.015 (1.005-1.025); UMIC TRIGGER UA YES; Urine Blood Negative (Negative); Urine Ketones Negative (Negative); Urine Protein Negative (Neg-Trace)
[2023-08-03 16:49] LABS: Bacteria Urine 2+ (None Seen); Hyaline Casts Urine 0-2 /LPF (0-2); RBC Urine 0-2 /HPF (0-2); WBC Urine 0-5 /HPF (0-5)
[2023-08-03 16:50] LABS: Creatinine Urine 64.87 mg/dL; Total Protein Urine Random < 7 mg/dL (<12)
[2023-08-04 13:59] LABS: Anti DNA DS Antibody 24 IU/mL
[2023-08-05 13:59] LABS: Complement C3 73 mg/dL (83-193)
== END 2023-08-03 14:23 | disposition home or self-care (01) ==
LOC: HO.LAB 14:22
PROVIDERS: Visit Provider Student in an Organized Health Care Education/Training Program
DX: M32.9 Systemic lupus erythematosus, unspecified (principal)
CPT/HCPCS: 36415; 80053; 81001; 82570; 84156; 85025; 85652; 86140; 86160; 86225

== ENCOUNTER 2023-08-05 14:22 | Outpatient (AMB) | payer OTHER, SELFPAY ==
--- NOTE | 2023-08-05 14:23 | A.OFFVIS_ITS ---
Intake Vital Signs 08/05/23 14:31 Height 5 ft 7 in Weight 186 lb 11.704 oz BMI 29.2 BP 122/70 Blood Pressure Location Lt brachial Position Sitting Pulse 101 H Pulse Source Pulse Oximeter Temp 97.2 F Temp Source Skin Pulse Oximetry (%) 97 Oxygen Delivery Method Room Air Intake Visit Reasons: SLE Intake Note: Patient last seen 05/05/23 presents today for follow up and test results. Oil Winterizer Required: No Accompanied by: Self / Same As Patient Allergies Sulfa (Sulfonamide Antibiotics) Allergy (Verified 08/05/23 14:25) Hives Medication List - Last Reconciled 08/05/23 by Meera Chatterjee MD hydroxychloroquine (Plaquenil) 200 mg PO BID medroxyprogesterone 400 mg IM QWEEK prednisone 5 mg PO DAILY triamcinolone acetonide 0.1% 1 appl topical BID-TID HPI HPI Comments History of Present Illness Details 27-year-old female with SLE returns for follow-up. On hydroxychloroquine 200 mg Twice daily and prednisone 2.5 mg daily. She states that she gets intermittent pain in her ankles and hands but she is doing about the same overall. She stated that she had bunion surgery 3 months ago left foot and it still hurts and left foot become swollen. She was hopeful that the recovery would be quicker and she could go back to work. She states that she gets intermittent rashes on her palms that come and go. She has rashes on her right hand today that started 2 weeks ago. They are a little painful when there is pressure on them. She is doing well otherwise. Denies any fevers. She is using the Depo shot for contraception. Initial history: This is at 27-year-old female with SLE who presents as a new patient. Her previous manager wound care left the practice. Patient was diagnosed with SLE back in 2013. 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 Patient was maintained on hydroxychloroquine 200 mg Twice daily Prednisone 125 mg daily and CellCept 2500 mg daily. Patient apparently had been off CellCept since about 2019. Patient was for about 2 months in 2018 while on CellCept. She had 1 in total and 1 miscarriage. She is unaware of any history of DVT/PE. Patient had not been on any treatment for her SLE for the last 1-2 years as she did not have a manager wound care. She also had not seen Dr. German (nephrology) in a long time. She states that she has a follow-up appointment in May. She mentions that she had lost 30 lb over the last 5-6 months by diet and exercise. She states that she is having diffuse pain especially in her wrists, hands, ankles, knees. The pain is worse in the morning. Associated stiffness that can last a few hours. Over the last month or so she has been having an itchy rash on her right ear and right index. She was prescribed triamcinolone cream by her PCP which helped with the itching but the rash remains. She also mentions that for years her fingers and toes are cold and change color in the cold. She denies any fevers. She denied any oral ulcers. She states however that for many years she gets gum bleeding when brushing her teeth. She denies any blood or froth in urine [facility] Medical History Nephritis Lupus Surgical History No history of previous surgery Family History Other Family history of heart disease Family hx-breast malignancy Social History Alcohol intake: current Alcohol intake frequency: does not drink Patient Tobacco Use Status: Never used Tobacco Female Reproductive History Menstrual Age of Menarche: 11 Review of Systems [facility] Reports arthralgias Skin/Breast Reports lesions Physical Exam Vital Signs: Last Vital Signs Temp 97.2 F 08/05/23 14:31 Pulse 101 H 08/05/23 14:31 BP 122/70 08/05/23 14:31 Pulse Ox 97 08/05/23 14:31 Oxygen Delivery Method Room Air 08/05/23 14:31 BMI result Body Mass Index 29.2 Const General: cooperative and healthy appearing Nutritional Appearance: overweight Orientation/consciousness: patient oriented x3 Limitations: no limitations HEENT Head: Yes normocephalic and Yes atraumatic Mouth: moist mucous membranes Resp Effort & Inspection: normal respiratory effort and able to speak in complete sentences Auscultation: clear to auscultation bilaterally Cardio Rate: regular rate Rhythm: regular rhythm Heart sounds: S1 normal heart sound present GI Inspection: No distended Palpation (GI): Soft to palpation Skin Other: Rash on right ear resolved Neuro General: patient oriented x3 Extrem Other: No active synovitis today Few circular rashes on palmar aspect of fingers measuring 2 mm in diameter, slightly tender to palpation Compression stocking left foot and leg Results Reviewed Results Reviewed: Labs 06/2020? DsDNA 37 (elevated) Lupus anticoagulant negative? Beta 2 glycoprotein IgG, IGA, IgM/anti cardiolipin IGG, IgA, IgM negative C3 68 low? UPCr: 0.1 normal Vitamin-D 17.6 CMP unremarkable Urinalysis is normal? ESR 3 CBC unremarkable Labs 01/2023 ESR 14? CRP undetectable CMP unremarkable CBC mild leukopenia at 3.6 with no neutropenia or lymphopenia Assessment & Plan Assessment & Plan (1) Lupus: Comment: dx 2013 +++DEMOND+++DsDNA, leukopenia, oral ulcers, inflammatory arthritis, rash on back suspicious for discoid lupus, class IV nephritis bx 2014, possible raynaud's ON HCQ since 2013 then lost to f/u MMF since 2013 or 2014 stopped around 2019 PDN 1-5 mg daily since then, then lost to f/u HCQ restarted 03/2023 + PDN 2.5 mg Code(s): M32.9 - Systemic lupus erythematosus, unspecified Plan: This is a 27-year-old female with SLE who presents for follow-up. She is doing well on hydroxychloroquine 200 mg Twice daily and prednisone 2.5 mg daily. Patient was diagnosed around 2013 and was on hydroxychloroquine 200 mg Twice daily, prednisone 1-5 mg daily and CellCept 2500 mg daily. Per chart review. CellCept was discontinued . Today patient is having subtle rashes on her palms. Labs Show no cytopenias, no proteinuria, dsDNA is elevated and C3 and C4 are low but there are no signs of organ dysfunction Increase prednisone to 5 mg daily for 2 weeks then remain on 2.5 mg daily Continue with hydroxychloroquine 200 mg Twice daily Labs before next visit in 4 months (2) Long-term use of hydroxychloroquine: Code(s): Z79.899 - Other intermediate manager (current) drug therapy Plan: Patient called her advertising copy writer, she was told that the earliest appointment it is in April. She was put on the cancellation list. Plan I spent 27 minutes reviewing patient's chart, evaluating patient, ordering diagnostic workup, counseling patient and documenting in the chart Orders: Orders Complete Blood Count Auto Diff 4 Months M32.9 - Systemic lupus erythematosus, unspecified Comprehensive Met. Panel 4 Months M32.9 - Systemic lupus erythematosus, unspecified Anti DNA DS Antibody 4 Months M32.9 - Systemic lupus erythematosus, unspecified Complement C4 4 Months M32.9 - Systemic lupus erythematosus, unspecified UA w Microscopic 4 Months M32.9 - Systemic lupus erythematosus, unspecified C Reactive Protein 4 Months M32.9 - Systemic lupus erythematosus, unspecified Erythrocyte Sedimentation Rate 4 Months M32.9 - Systemic lupus erythematosus, unspecified Complement C3 4 Months M32.9 - Systemic lupus erythematosus, unspecified Protein Creatinine Ratio, Ur 4 Months M32.9 - Systemic lupus erythematosus, unspecified Medications: Changed From prednisone 5 mg PO DAILY To prednisone orally; Take 2 tabs daily for 2 weeks then remain on 1 tab daily 134 tabs 0RF Refilled hydroxychloroquine (Plaquenil) 200 mg PO BID 180 tabs 1RF Coding Level of Care Code Est Pt Level 4 (53923) Diagnoses Lupus M32.9 Long-term use of hydroxychloroquine Z79.899
[2023-08-05 14:31] VITALS: BP 122/70; PULSE 101; TEMP 36.2; O2SAT 97; BMI 29.2
== END 2023-08-05 14:50 | disposition home or self-care (01) ==
PROVIDERS: PCP Nurse Practitioner Family; Visit Provider Student in an Organized Health Care Education/Training Program
DX: M32.9 Systemic lupus erythematosus, unspecified (principal); Z79.899 Other long term (current) drug therapy
CPT/HCPCS: 99214

== ENCOUNTER → 2023-08-05 14:22 | Outpatient (BNVA) | payer OTHER, SELFPAY | PROVIDERS: PCP Nurse Practitioner Family; Visit Provider Student in an Organized Health Care Education/Training Program | DX: M32.9 Systemic lupus erythematosus, unspecified (principal); Z79.899 Other long term (current) drug therapy | CPT/HCPCS: 99212 ==

== ENCOUNTER 2023-11-30 10:39 | Outpatient (REF) | payer MEDICAID, SELFPAY ==
[2023-11-30 11:37] LABS: Basophils Percent Auto 0.6 % (0-2); Eosinophils Absolute Auto 0.1 X10*3/uL (0.0-0.4); Eosinophils Percent Auto 2.9 % (0-4); Hemoglobin 13.2 g/dl (12.0-16.0); Imm Gran Abs Auto 0.02 X10*3/uL (0.00-0.03); Imm Gran Pct Auto 0.4 % (0.0-0.4); Lymphocytes Absolute Auto 1.8 X10*3/uL (1.2-4.9); Lymphocytes Percent Auto 37.5 % (20-40); MANUAL DIFF FLAG SCAN; Mean Corpuscular HGB Conc 33.8 g/dl (31.0-35.0); Mean Corpuscular Hemoglobin 29.1 pg (27.0-33.0); Mean Corpuscular Volume 86.1 fL (80.0-98.0); Mean Platelet Volume 9.6 fL (9.4-12.3); Monocytes Absolute Auto 0.5 X10*3/uL (0.1-1.2); Monocytes Percent Auto 9.4 % (2-11); Neutrophils Absolute Auto 2.3 x10*3/uL (2.0-8.3); Neutrophils Percent Auto 49.2 % (45-73); Platelet Count 264 X10*3/uL (160-400); Red Blood Count 4.53 X10*6/uL (4.20-5.50); Red Cell Distribution Width 13.3 % (11.0-16.0); SCAN SMEAR FLAG 1; White Blood Count 4.8 X10*3/uL (4.8-10.8)
[2023-11-30 12:03] LABS: Alanine Aminotransferase 17 U/L (0-31); Albumin Level 4.6 g/dL (3.5-5.0); Alkaline Phosphatase 60 U/L (39-117); Anion Gap 11 (12-20); Aspartate Amino Transferase 19 U/L (5-31); Bilirubin Total 0.5 mg/dL (0.0-1.0); Blood Urea Nitrogen 9 mg/dL (9-16); C Reactive Protein 0.23 mg/dL (< or = 0.50); Calcium 9.5 mg/dL (8.4-10.2); Carbon Dioxide 24 mmol/L (22-29); Chloride 110 mmol/L (96-108); Estimated Glomerular Filt Rate > 60; Glucose Random 66 mg/dL (60-115); Potassium 3.7 mmol/L (3.3-5.1); Sodium 141 mmol/L (135-145); Total Protein 7.9 g/dL (6.5-8.0)
[2023-11-30 12:07] LABS: SLIDE REVIEW VERIFIED
[2023-11-30 12:18] LABS: Erythrocyte Sedimentation Rate 14 MM/HR (0-20)
[2023-11-30 13:21] LABS: Appearance Urine Clear; Color Urine Yellow; Glucose Urine UA Negative (Negative); Leukocyte Esterase Urine Negative (Negative); Nitrite Urine Negative (Negative); PH 5.5 (5.0-9.0); Specific Gravity - Urine 1.015 (1.005-1.025); Urine Blood Negative (Negative); Urine Ketones Negative (Negative); Urine Protein Negative (Neg-Trace)
[2023-11-30 13:30] LABS: Bacteria Urine None Seen (None Seen); Hyaline Casts Urine 0-2 /LPF (0-2); RBC Urine 0-2 /HPF (0-2); Squamous Epithelial Cell Urine 0-2 /HPF (0-2); WBC Urine 0-5 /HPF (0-5)
[2023-11-30 14:00] LABS: Creatinine Urine 78.67 mg/dL; Protein/Creatinine Ratio, Ur 0.13 (<0.2); Total Protein Urine Random 10 mg/dL (<12)
[2023-12-01 09:52] LABS: Complement C3 101 mg/dL (83-193)
[2023-12-01 21:19] LABS: Anti DNA DS Antibody 20 IU/mL
== END 2023-11-30 10:40 | disposition home or self-care (01) ==
LOC: HO.LAB 10:39
PROVIDERS: Visit Provider Student in an Organized Health Care Education/Training Program
DX: M32.9 Systemic lupus erythematosus, unspecified (principal)
CPT/HCPCS: 36415; 80053; 81001; 82570; 84156; 85025; 85652; 86140; 86160; 86225

== ENCOUNTER 2023-12-07 13:53 | Outpatient (AMB) | payer MEDICAID, SELFPAY ==
--- NOTE | 2023-12-07 13:54 | A.OFFVIS_ITS ---
Vital Signs 12/07/23 13:57 Height 5 ft 7 in Weight 186 lb 4.65 oz BMI 29.2 BP 116/70 Blood Pressure Location Lt brachial Position Sitting Pulse 90 Pulse Source Pulse Oximeter Pulse Oximetry (%) 99 Oxygen Delivery Method Room Air Intake Visit Reasons: SLE Intake Note: Patient presents for SLE. Allergies Sulfa (Sulfonamide Antibiotics) Allergy (Verified 12/07/23 13:57) Hives Medication List - Last Reconciled 12/07/23 by Meera Chatterjee MD hydroxychloroquine (Plaquenil) 200 mg PO BID medroxyprogesterone 400 mg IM QWEEK prednisone 2.5 mg PO DAILY triamcinolone acetonide 0.1% 1 appl topical BID-TID HPI Comments Details: 28-year-old female with SLE returns for follow-up. On hydroxychloroquine 200 mg Twice daily and prednisone 2.5 mg daily. She states that she feels well overall. She gets intermittent aches of her joints and start her rashes but they do not last. Denies any fevers or weight loss. Overall doing well. Compliant with meds Initial history: This is at 27-year-old female with SLE who presents as a new patient. Her previous herd tester left the practice. Patient was diagnosed with SLE back in 2013. 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 Patient was maintained on hydroxychloroquine 200 mg Twice daily Prednisone 125 mg daily and CellCept 2500 mg daily. Patient apparently had been off CellCept since about 2019. Patient was for about 2 months in 2018 while on CellCept. She had 1 in total and 1 miscarriage. She is unaware of any history of DVT/PE. Patient had not been on any treatment for her SLE for the last 1-2 years as she did not have a herd tester. She also had not seen Dr. German (nephrology) in a long time. She states that she has a follow-up appointment in May. She mentions that she had lost 30 lb over the last 5-6 months by diet and exercise. She states that she is having diffuse pain especially in her wrists, hands, ankles, knees. The pain is worse in the morning. Associated stiffness that can last a few hours. Over the last month or so she has been having an itchy rash on her right ear and right index. She was prescribed triamcinolone cream by her PCP which helped with the itching but the rash remains. She also mentions that for years her fingers and toes are cold and change color in the cold. She denies any fevers. She denied any oral ulcers. She states however that for many years she gets gum bleeding when brushing her teeth. She denies any blood or froth in urine [facility] Medical History Nephritis Lupus Surgical History No history of previous surgery Family History Other Family history of heart disease Family hx-breast malignancy Social History Alcohol intake: current Alcohol intake frequency: does not drink Patient Tobacco Use Status: Never used Tobacco Female Reproductive History Menstrual Age of Menarche: 11 Review of Systems [employer] Reports arthralgias Skin/Breast Reports lesions Physical Exam Vital Signs: Last Vital Signs Pulse 90 12/07/23 13:57 BP 116/70 12/07/23 13:57 Pulse Ox 99 12/07/23 13:57 Oxygen Delivery Method Room Air 12/07/23 13:57 BMI result Body Mass Index 29.2 Const General: cooperative and healthy appearing Nutritional Appearance: overweight Orientation/consciousness: patient oriented x3 Limitations: no limitations HEENT Head: Yes normocephalic and Yes atraumatic Mouth: moist mucous membranes Resp Effort & Inspection: normal respiratory effort and able to speak in complete sentences Auscultation: clear to auscultation bilaterally Cardio Rate: regular rate Rhythm: regular rhythm Heart sounds: S1 normal heart sound present GI Inspection: No distended Palpation (GI): Soft to palpation Skin General skin exam: no rashes or lesions noted Neuro General: patient oriented x3 Extrem Other: No active synovitis today Results Reviewed Results Reviewed: Labs 06/2020? DsDNA 37 (elevated) Lupus anticoagulant negative? Beta 2 glycoprotein IgG, IGA, IgM/anti cardiolipin IGG, IgA, IgM negative C3 68 low? UPCr: 0.1 normal Vitamin-D 17.6 CMP unremarkable Urinalysis is normal? ESR 3 CBC unremarkable Labs 01/2023 ESR 14? CRP undetectable CMP unremarkable CBC mild leukopenia at 3.6 with no neutropenia or lymphopenia Assessment & Plan Assessment & Plan (1) Lupus: Comment: dx 2013 +++DEMOND+++DsDNA, leukopenia, oral ulcers, inflammatory arthritis, rash on back suspicious for discoid lupus, class IV nephritis bx 2015, possible raynaud's ON HCQ since 2013 then lost to f/u MMF since 2013 or 2014 stopped around 2019 PDN 1-5 mg daily since then, then lost to f/u HCQ restarted 03/2023 + PDN 2.5 mg Code(s): M32.9 - Systemic lupus erythematosus, unspecified Category: Medical Plan: This is a 28-year-old female with SLE who presents for follow-up. She is doing well on hydroxychloroquine 200 mg Twice daily and prednisone 2.5 mg daily. Patient was diagnosed around 2013 and was on hydroxychloroquine 200 mg Twice daily, prednisone 1-5 mg daily and CellCept 2500 mg daily. Per chart review. CellCept was discontinued . Today patient is doing quite well overall. See any signs suggestive of active SLE. Labs show persistently elevated dsDNA and fluctuating complements but no organ involvement such as cytopenias, proteinuria, transaminitis. Continue with prednisone 2.5 mg daily and hydroxychloroquine 200 mg Twice daily Labs before next visit 4 months (2) Long-term use of hydroxychloroquine: Code(s): Z79.899 - Other mcc (current) drug therapy Category: Medical Plan: Patient called her jute bag cutting machine operator, she was told that the earliest appointment it is in April. She was put on the cancellation list. Plan I spent 27 minutes reviewing patient's chart, evaluating patient, ordering diagnostic workup, counseling patient and documenting in the chart Orders: Orders Anti DNA DS Antibody 4 Months M32.9 - Systemic lupus erythematosus, unspecified Complement C3 4 Months M32.9 - Systemic lupus erythematosus, unspecified Complement C4 4 Months M32.9 - Systemic lupus erythematosus, unspecified Erythrocyte Sedimentation Rate 4 Months M32.9 - Systemic lupus erythematosus, unspecified UA w Microscopic 4 Months M32.9 - Systemic lupus erythematosus, unspecified C Reactive Protein 4 Months M32.9 - Systemic lupus erythematosus, unspecified Protein Creatinine Ratio, Ur 4 Months M32.9 - Systemic lupus erythematosus, u nspecified Complete Blood Count Auto Diff 4 Months M32.9 - Systemic lupus erythematosus, unspecified Comprehensive Met. Panel 4 Months M32.9 - Systemic lupus erythematosus, unspecified Medications: Refilled hydroxychloroquine (Plaquenil) 200 mg PO BID 180 tabs 1RF prednisone 2.5 mg PO DAILY 90 tabs 1RF Coding Level of Care Code Est Pt Level 4 (52315) Diagnoses Lupus M32.9 Long-term use of hydroxychloroquine Z79.899
[2023-12-07 13:57] VITALS: BP 116/70; PULSE 90; O2SAT 99; BMI 29.2
== END 2023-12-07 14:25 | disposition home or self-care (01) ==
PROVIDERS: PCP Nurse Practitioner Family; Visit Provider Student in an Organized Health Care Education/Training Program
DX: M32.9 Systemic lupus erythematosus, unspecified (principal); Z79.899 Other long term (current) drug therapy
CPT/HCPCS: 99214

== ENCOUNTER → 2023-12-07 13:53 | Outpatient (BNVA) | payer OTHER, SELFPAY | PROVIDERS: PCP Nurse Practitioner Family; Visit Provider Student in an Organized Health Care Education/Training Program | DX: M32.9 Systemic lupus erythematosus, unspecified (principal); Z79.52 Long term (current) use of systemic steroids; Z79.899 Other long term (current) drug therapy | CPT/HCPCS: 99212 ==

== ENCOUNTER 2024-03-22 09:08 | Outpatient (REF) | payer OTHER, SELFPAY ==
[2024-03-22 10:40] LABS: Appearance Urine Clear; Color Urine Yellow; Glucose Urine UA Negative (Negative); Leukocyte Esterase Urine Trace (Negative); Nitrite Urine Negative (Negative); PH 5.5 (5.0-9.0); UMIC TRIGGER UA YES; Urine Blood Negative (Negative); Urine Ketones Negative (Negative); Urine Protein Negative (Neg-Trace)
[2024-03-22 10:43] LABS: Bacteria Urine Trace (None Seen); Hyaline Casts Urine 0-2 /LPF (0-2); RBC Urine 0-2 /HPF (0-2); WBC Urine 0-5 /HPF (0-5)
[2024-03-22 11:03] LABS: Eosinophils Absolute Auto 0.1 X10*3/uL (0.0-0.4); Eosinophils Percent Auto 2.8 % (0-4); Hematocrit 40.1 % (37.0-47.0); Hemoglobin 13.3 g/dl (12.0-16.0); Imm Gran Abs Auto 0.01 X10*3/uL (0.00-0.03); Imm Gran Pct Auto 0.3 % (0.0-0.4); Lymphocytes Absolute Auto 0.9 X10*3/uL (1.2-4.9); Lymphocytes Percent Auto 29.7 % (20-40); MANUAL DIFF FLAG SCAN; Mean Corpuscular HGB Conc 33.2 g/dl (31.0-35.0); Mean Corpuscular Hemoglobin 28.9 pg (27.0-33.0); Mean Corpuscular Volume 87.2 fL (80.0-98.0); Mean Platelet Volume 9.7 fL (9.4-12.3); Monocytes Absolute Auto 0.2 X10*3/uL (0.1-1.2); Monocytes Percent Auto 8.3 % (2-11); Neutrophils Absolute Auto 1.7 x10*3/uL (2.0-8.3); Neutrophils Percent Auto 57.9 % (45-73); Platelet Count 283 X10*3/uL (160-400); Red Cell Distribution Width 13.2 % (11.0-16.0); SCAN SMEAR FLAG 1; White Blood Count 2.9 X10*3/uL (4.8-10.8)
[2024-03-22 11:35] LABS: Alanine Aminotransferase 29 U/L (0-31); Albumin Level 4.6 g/dL (3.5-5.0); Alkaline Phosphatase 59 U/L (39-117); Anion Gap 15 (12-20); Aspartate Amino Transferase 27 U/L (5-31); Bilirubin Total 0.4 mg/dL (0.0-1.0); Blood Urea Nitrogen 9 mg/dL (9-16); C Reactive Protein < 0.10 mg/dL (< or = 0.50); Carbon Dioxide 21 mmol/L (22-29); Chloride 110 mmol/L (96-108); Estimated Glomerular Filt Rate > 60; Glucose Random 83 mg/dL (60-115); Sodium 142 mmol/L (135-145); Total Protein 7.7 g/dL (6.5-8.0)
[2024-03-22 11:40] LABS: Creatinine Urine 212.63 mg/dL; Protein/Creatinine Ratio, Ur 0.06 (<0.2); Total Protein Urine Random 13 mg/dL (<12)
[2024-03-22 11:44] LABS: Erythrocyte Sedimentation Rate 7 MM/HR (0-20)
[2024-03-22 11:51] LABS: SLIDE REVIEW VERIFIED
[2024-03-23 11:58] LABS: Complement C3 88 mg/dL (83-193)
[2024-03-25 13:22] LABS: Anti DNA DS Antibody 19 IU/mL
== END 2024-03-22 09:09 | disposition home or self-care (01) ==
LOC: HO.LAB 09:08
PROVIDERS: Visit Provider Student in an Organized Health Care Education/Training Program
DX: M32.9 Systemic lupus erythematosus, unspecified (principal)
CPT/HCPCS: 36415; 80053; 81001; 82570; 84156; 85025; 85652; 86140; 86160; 86225

== ENCOUNTER 2024-03-25 14:17 | Outpatient (AMB) | payer OTHER, SELFPAY ==
--- NOTE | 2024-03-25 14:24 | A.OFFVIS_ITS ---
Vital Signs 03/25/24 14:28 Height 5 ft 7 in Weight 185 lb 3.013 oz BMI 29.0 BP 112/70 Blood Pressure Location Rt brachial Position Sitting Pulse 98 Pulse Source Pulse Oximeter Pulse Oximetry (%) 99 Oxygen Delivery Method Room Air Intake Visit Reasons: Antisynthetase/CM Intake Note: Patient presents for Antisynthetase. Allergies Sulfa (Sulfonamide Antibiotics) Allergy (Verified 03/25/24 14:27) Hives Medication List - Last Reconciled 03/25/24 by Meera Chatterjee MD hydroxychloroquine (Plaquenil) 200 mg PO BID medroxyprogesterone 400 mg IM QWEEK prednisone 2.5 mg PO DAILY triamcinolone acetonide 0.1% 1 appl topical BID-TID HPI Comments Details: 28-year-old female with SLE returns for follow-up. On hydroxychloroquine 200 mg Twice daily and prednisone 2.5 mg daily. She states that over the last 2-3 months she has not been doing well. She has been having more pains. Especially in the morning, involving her hands, wrists, knees and ankles. Morning stiffness lasting more than 1 hour. Has been noticed significant hair loss. Has been getting headaches at least twice a week. She has also noticed chills and night sweats. No fever Initial history: This is at 27-year-old female with SLE who presents as a new patient. Her previous mammography technologist left the practice. Patient was diagnosed with SLE back in 2013. 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 Patient was maintained on hydroxychloroquine 200 mg Twice daily Prednisone 125 mg daily and CellCept 2500 mg daily. Patient apparently had been off CellCept since about 2019. Patient was for about 2 months in 2018 while on CellCept. She had 1 in total and 1 miscarriage. She is unaware of any history of DVT/PE. Patient had not been on any treatment for her SLE for the last 1-2 years as she did not have a mammography technologist. She also had not seen Dr. German (nephrology) in a long time. She states that she has a follow-up appointment in May. She mentions that she had lost 30 lb over the last 5-6 months by diet and exercise. She states that she is having diffuse pain especially in her wrists, hands, ankles, knees. The pain is worse in the morning. Associated stiffness that can last a few hours. Over the last month or so she has been having an itchy rash on her right ear and right index. She was prescribed triamcinolone cream by her PCP which helped with the itching but the rash remains. She also mentions that for years her fingers and toes are cold and change color in the cold. She denies any fevers. She denied any oral ulcers. She states however that for many years she gets gum bleeding when brushing her teeth. She denies any blood or froth in urine [facility] Medical History Nephritis Lupus Surgical History No history of previous surgery Family History Other Family history of heart disease Family hx-breast malignancy Social History Alcohol intake: current Alcohol intake frequency: does not drink Patient Tobacco Use Status: Never used Tobacco Female Reproductive History Menstrual Age of Menarche: 11 Review of Systems Const Reports headache(s) ENT Reports headache(s) Musc Reports arthralgias and Reports stiffness Skin/Breast Reports alopecia Neuro Reports headache(s) Physical Exam Vital Signs: Last Vital Signs Pulse 98 03/25/24 14:28 BP 112/70 03/25/24 14:28 Pulse Ox 99 03/25/24 14:28 Oxygen Delivery Method Room Air 03/25/24 14:28 BMI result Body Mass Index 29.0 Const General: cooperative and healthy appearing Nutritional Appearance: overweight Orientation/consciousness: patient oriented x3 Limitations: no limitations HEENT Head: Yes normocephalic and Yes atraumatic Mouth: moist mucous membranes Resp Effort & Inspection: normal respiratory effort and able to speak in complete sentences Auscultation: clear to auscultation bilaterally Cardio Rate: regular rate Rhythm: regular rhythm Heart sounds: S1 normal heart sound present GI Inspection: No distended Palpation (GI): Soft to palpation Skin General skin exam: no rashes or lesions noted Neuro General: patient oriented x3 Extrem Other: Bilateral positive MCP squeeze test No swollen joints today SLEDAI is 11 based on arthritis, low complements, high dsDNA, leukopenia Assessment & Plan Assessment & Plan (1) Lupus: Comment: dx 2013 +++DEMOND+++DsDNA, leukopenia, oral ulcers, inflammatory arthritis, rash on back suspicious for discoid lupus, class IV nephritis bx 2015, possible raynaud's ON HCQ since 2013 then lost to f/u MMF since 2013 or 2015 stopped around 2019 PDN 1-5 mg daily since then, then lost to f/u HCQ restarted 03/2023 + PDN 2.5 mg Code(s): M32.9 - Systemic lupus erythematosus, unspecified Category: Medical Plan: This is a 28-year-old female with SLE who presents for follow-up. Patient has not been doing well recently on hydroxychloroquine 200 mg Twice daily and prednisone 2.5 mg daily. She has been having more arthralgias, morning stiffness, chills, hair loss, labs show worsening leukopenia, C3 and C4 dropping, dsDNA elevated. We will need to add DMARDs. Discussed risks and benefits of Benlysta. Patient agreed to proceed. Will start prior authorization for Benlysta. Continue hydroxychloroquine and prednisone as prescribed Labs before next visit in 3 months (2) Long-term use of hydroxychloroquine: Code(s): Z79.899 - Other intermediate designer (current) drug therapy Category: Medical Plan: She will see the enterprise application administrator this month Plan I spent 27 minutes reviewing patient's chart, evaluating patient, ordering diagnostic workup, counseling patient and documenting in the chart Orders: Orders Anti DNA DS Antibody 3 Months M32.9 - Systemic lupus erythematosus, unspecified C Reactive Protein 3 Months M32.9 - Systemic lupus erythematosus, unspecified Protein Creatinine Ratio, Ur 3 Months M32.9 - Systemic lupus erythematosus, unspecified Complete Blood Count Auto Diff 3 Months M32.9 - Systemic lupus erythematosus, unspecified Complement C3 3 Months M32.9 - Systemic lupus erythematosus, unspecified Complement C4 3 Months M32.9 - Systemic lupus erythematosus, unspecified Erythrocyte Sedimentation Rate 3 Months M32.9 - Systemic lupus erythematosus, unspecified UA w Microscopic 3 Months M32.9 - Systemic lupus erythematosus, unspecified Comprehensive Met. Panel 3 Months M32.9 - Systemic lupus erythematosus, unspecified Medications: New belimumab (Benlysta) inject into upper thigh or abdomen; rotate sites 200 mg subcut QWEEK 4 mL 2RF M32.9 - Systemic lupus erythematosus, unspecified Coding Level of Care Code Est Pt Level 4 (81566) Diagnoses Lupus M32.9 Long-term use of hydroxychloroquine Z79.899
[2024-03-25 14:28] VITALS: BP 112/70; PULSE 98; O2SAT 99; BMI 29.0
== END 2024-03-25 14:57 | disposition home or self-care (01) ==
PROVIDERS: PCP Nurse Practitioner Family; Visit Provider Student in an Organized Health Care Education/Training Program
DX: M32.9 Systemic lupus erythematosus, unspecified (principal); Z79.899 Other long term (current) drug therapy
CPT/HCPCS: 99214

== ENCOUNTER → 2024-03-25 14:17 | Outpatient (BNVA) | payer OTHER, SELFPAY | PROVIDERS: PCP Nurse Practitioner Family; Visit Provider Student in an Organized Health Care Education/Training Program | DX: M32.9 Systemic lupus erythematosus, unspecified (principal); Z79.899 Other long term (current) drug therapy | CPT/HCPCS: 99212 ==

== ENCOUNTER 2024-06-28 14:40 | Outpatient (REF) | payer OTHER, SELFPAY ==
[2024-06-28 15:42] LABS: MANUAL DIFF FLAG NO
--- OUTSIDE RECORDS SUMMARY | 2024-06-28 16:04 | XMS_ITS | Clinical Summary ---
Author Organization [facility] Address [address] [facility] [address] [place] [address] Phone Care Team Providers Care House Cleaner Supervisor Name Role Phone Elton Lara MD Primary Care Prov ider Allergies Active Allergy Reactions Criticality Noted Date Comments Sulfa Antibiotics Other (see comments) 10/24/19 21 Medications predniSONE (DELTASONE) 10 MG tablet Take 5 mg by mouth 1 (one) time each day 03/23/2015 Active hydroxychloroqui ne (PLAQUENIL) 200 MG tablet Take 1 tablet by mouth 2 (two) times a day Active Active Problems Problem Noted Date Diagnosed Date SLE glomerulonephritis syndrome, WHO class Systemic lupus erythematosus 10/23/2020 Family History Medical History Relation Comments Cancer Mother Relation Status Comments Father Alive Mother Alive Social History Tobacco Use Types Packs/Day Years Used Date Smoking Tobacco: Never Alcohol Use Standard Drinks/Week Comments No 0 (1 standard drink = 0.6 oz pur e alcohol) Comments Unknown Sex and Gender Information Value Date Recorded Sex Assigned at Not on file Legal Sex Female 5:11 PM EST Gender Identity Not on file Sexual Orientation Not on file Last Filed Vital Signs Vital Sign Reading Time Taken Comments Blood Pressure 126/63 05/01/2023 10:29 AM EST Pulse 100 05/01/2023 10:29 AM EST Temperature - - Respiratory Rate - - Oxygen Saturation 97% 05/01/2023 10:29 AM EST Inhaled Oxygen Concentration - - Weight 84.4 kg (186 lb) 05/01/2023 10:29 AM EST Height 170.2 cm (5' 7 ) 03/02/2019 12:00 PM EDT Body Mass Index 29.13 03/02/2019 12:00 PM EDT Plan of Treatment Health Maintenance Due Date Last Done Comments Hepatitis B Vaccine (1 of 3 - 19+ 3-dose series) 2013 Influenza Vaccine (#1) 2024 Pneumococcal Vaccine: Pediat rics (0 to 5 Years) and At-Risk Patients (6 to 64 Years) Aged Out No longer eligi ble based on patient's age to complete this topic Insurance Care Teams House Cleaner Supervisor Relationship Specialty Start Date End Date Elton Lara MD [address] [place] [address] PCP - General 05/28/20
[2024-06-28 16:05] LABS: Basophils Percent Auto 0.7 % (0-2); Eosinophils Absolute Auto 0.1 X10*3/uL (0.0-0.4); Eosinophils Percent Auto 2.3 % (0-4); Hematocrit 40.4 % (37.0-47.0); Hemoglobin 13.8 g/dl (12.0-16.0); Imm Gran Abs Auto 0.01 X10*3/uL (0.00-0.03); Imm Gran Pct Auto 0.2 % (0.0-0.4); Lymphocytes Absolute Auto 1.7 X10*3/uL (1.2-4.9); Lymphocytes Percent Auto 38.6 % (20-40); Mean Corpuscular HGB Conc 34.2 g/dl (31.0-35.0); Mean Corpuscular Hemoglobin 29.2 pg (27.0-33.0); Mean Corpuscular Volume 85.4 fL (80.0-98.0); Mean Platelet Volume 9.6 fL (9.4-12.3); Monocytes Absolute Auto 0.3 X10*3/uL (0.1-1.2); Monocytes Percent Auto 7.2 % (2-11); Neutrophils Absolute Auto 2.2 x10*3/uL (2.0-8.3); Platelet Count 263 X10*3/uL (160-400); Red Blood Count 4.73 X10*6/uL (4.20-5.50); White Blood Count 4.3 X10*3/uL (4.8-10.8)
[2024-06-28 16:06] LABS: Appearance Urine Clear; Color Urine Yellow; Glucose Urine UA Negative (Negative); Leukocyte Esterase Urine Negative (Negative); Nitrite Urine Negative (Negative); PH 6.5 (5.0-9.0); Urine Blood Negative (Negative); Urine Ketones Negative (Negative); Urine Protein Negative (Neg-Trace)
[2024-06-28 16:11] LABS: Bacteria Urine None Seen (None Seen); Hyaline Casts Urine 0-2 /LPF (0-2); RBC Urine 0-2 /HPF (0-2); Squamous Epithelial Cell Urine 0-2 /HPF (0-2); WBC Urine 0-5 /HPF (0-5)
[2024-06-28 16:47] LABS: Creatinine Urine 44.81 mg/dL; Total Protein Urine Random < 7 mg/dL (<12)
[2024-06-28 17:06] LABS: Erythrocyte Sedimentation Rate 4 MM/HR (0-20)
[2024-06-28 17:24] LABS: Alanine Aminotransferase 48 U/L (0-31); Albumin Level 4.8 g/dL (3.5-5.0); Alkaline Phosphatase 74 U/L (39-117); Anion Gap 11 (12-20); Aspartate Amino Transferase 31 U/L (5-31); Bilirubin Total 0.3 mg/dL (0.0-1.0); Blood Urea Nitrogen 13 mg/dL (9-16); C Reactive Protein < 0.10 mg/dL (< or = 0.50); Calcium 9.7 mg/dL (8.4-10.2); Carbon Dioxide 25 mmol/L (22-29); Chloride 108 mmol/L (96-108); Estimated Glomerular Filt Rate > 60; Glucose Random 84 mg/dL (60-115); Potassium 3.9 mmol/L (3.3-5.1); Sodium 140 mmol/L (135-145); Total Protein 8.1 g/dL (6.5-8.0)
[2024-06-29 04:00] LABS: HBS Num1 1.95 mIU/mL (0-7.99); HBsAGNum1 0.43 S/CO (0.00-0.99); Hepatitis A Antibody IgM 0.25 Index (0-0.79); Hepatitis B Core Antibody Nonreactive (Nonreactive); Hepatitis B Surface Antigen Negative (Negative); ~HepC Num1 0.12 S/CO (0.00-0.79); ~Hepatitis A Antibody IgM Nonreactive (Nonreactive); ~Hepatitis B Surface Antibody NONREACTIVE (Nonreactive); ~Hepatitis C Antibody Nonreactive (Nonreactive)
[2024-07-01 15:03] LABS: TS Negative Control Passed; TS Panel A 0; TS Panel B 0; TS Positive Control Passed; TSpotTB Negative (Negative)
== END 2024-06-28 14:41 | disposition home or self-care (01) ==
LOC: HO.LAB 14:40
PROVIDERS: PCP Nurse Practitioner Family; Visit Provider Student in an Organized Health Care Education/Training Program
DX: M32.9 Systemic lupus erythematosus, unspecified (principal); Z79.899 Other long term (current) drug therapy
CPT/HCPCS: 36415; 80053; 81001; 82570; 84156; 85025; 85652; 86140; 86481; 86704; 86706; 86709; 86803; 87340; 99212

== ENCOUNTER 2024-06-28 14:40 | Outpatient (AMB) | payer OTHER, SELFPAY ==
--- NOTE | 2024-06-28 14:42 | MHC.OFFVIS ---
Vital Signs 06/28/24 14:47 Height 5 ft 7 in Weight 183 lb 13.848 oz BMI 28.8 BP 115/68 Blood Pressure Location Rt brachial Position Sitting Pulse 89 Pulse Source Pulse Oximeter Pulse Oximetry (%) 99 Oxygen Delivery Method Room Air Intake Visit Reasons: SLE Intake Note: Patient presents for SLE. Allergies Sulfa (Sulfonamide Antibiotics) Allergy (Verified 06/28/24 14:46) Hives Medication List - Last Reconciled 06/28/24 by Britta Taylor MD Benlysta (belimumab) 200 mg subcut QWEEK NS hydroxychloroquine (Plaquenil) 200 mg PO BID medroxyprogesterone 400 mg IM QWEEK prednisone 2.5 mg PO DAILY triamcinolone acetonide 0.1% 1 appl topical BID-TID HPI Comments Details: Patient is a 28-year-old female with lupus here today for follow up Interval History: Patient last seen 03/25/[address] Chatterjee. At that time she reported she was not doing well noting she was having more pains in her hands, wrists, knees and ankles with morning stiffness lasting more than 1 hour. She was also noting significant hair loss. Plan was to start Benlysta Today, States that her last follow up with her ophthal. Noted that she had a hole in her eye. Dr. Karen Corcoran. Received the Benlysta 2 months ago. Helps overall, but notes that some days she still has the pain. Since starting her pain levels have decreased to a 3 for the most part Rheumatologic History: SLE DDx 2013 +++DEMOND+++DsDNA, leukopenia, oral ulcers, inflammatory arthritis, rash on back suspicious for discoid lupus, class IV nephritis bx 2014, possible raynaud's ON HCQ since 2013 then lost to f/u MMF since 2013 or 2014 stopped around 2019 PDN 1-5 mg daily since then, then lost to f/u HCQ restarted 03/2023 + PDN 2.5 mg Initial history: This is at 27-year-old female with SLE who presents as a new patient. Her previous geotechnical operating engineer left the practice. Patient was diagnosed with SLE back in 2013. 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 Patient was maintained on hydroxychloroquine 200 mg Twice daily Prednisone 125 mg daily and CellCept 2500 mg daily. Patient apparently had been off CellCept since about 2019. Patient was for about 2 months in 2018 while on CellCept. She had 1 in total and 1 miscarriage. She is unaware of any history of DVT/PE. Patient had not been on any treatment for her SLE for the last 1-2 years as she did not have a geotechnical operating engineer. She also had not seen Dr. German (nephrology) in a long time. She states that she has a follow-up appointment in May. She mentions that she had lost 30 lb over the last 5-6 months by diet and exercise. She states that she is having diffuse pain especially in her wrists, hands, ankles, knees. The pain is worse in the morning. Associated stiffness that can last a few hours. Over the last month or so she has been having an itchy rash on her right ear and right index. She was prescribed triamcinolone cream by her PCP which helped with the itching but the rash remains. She also mentions that for years her fingers and toes are cold and change color in the cold. She denies any fevers. She denied any oral ulcers. She states however that for many years she gets gum bleeding when brushing her teeth. She denies any blood or froth in urine Current Rheumatology Medication(s): Benlysta 200mg SC every week Plaquenil 200mg bid Prednisone 2.5mg daily [facility] Medical History Nephritis Lupus Surgical History No history of previous surgery Family History Other Family history of heart disease Family hx-breast malignancy Social History Alcohol intake: current Alcohol intake frequency: does not drink Patient Tobacco Use Status: Never used Tobacco Female Reproductive History Menstrual Age of Menarche: 11 Review of Systems Const Details: Review of Systems Constitutional: Denies fever, chills, weight loss ENT: Denies vision changes, eye pain or eye redness, dental caries, dry mouth GI: Denies nausea, vomiting, diarrhea, abdominal pain, change in BM Pulm: Denies SOB, CHACON, hemoptysis, wheezing Cards: Denies chest pain, palpitations Skin: Denies Raynaud's, rash, nail changes, photosensitivity, PRACTICING DERMATOLOGIST: Denies headaches, weakness, paresthesias, recurrent falls MSK: as per HPI All other systems reviewed and are unremarkable except noted above Physical Exam Vital Signs: Last Vital Signs Pulse 89 06/28/24 14:47 BP 115/68 06/28/24 14:47 Pulse Ox 99 06/28/24 14:47 Oxygen Delivery Method Room Air 06/28/24 14:47 BMI result Body Mass Index 28.8 Vital signs reviewed Physical Examination CONSTITUITIONAL Patient alert and cooperative. Well appearing and in no apparent painful distress HEENT Conjunctiva and sclera clear. ?Pupils equal round and reactive to light. ?No lymphadenopathy. ? CHEST/RESPIRATORY SYSTEM Normal respiratory effort and able to speak in complete sentences. ?Clear to auscultation bilaterally. ?No crackles, rales, rhonchi, wheezes heard. CARDIAC SYSTEM Regular rate and rhythm. ?S1 and S2 heard no murmurs. ?Radial pulses intact bilaterally MSK Hands: ?Good stuffed casing tier strength bilaterally. No deformities noted. ?No synovitis noted to the MCPs, PIPs or DIPs. ?No tenderness to palpation of these joints. Wrists: ?Full range of motion at the wrists without pain. ?TTP of bilateral wrists Elbows: Full range of motion without pain. No tenderness, weakness, swelling, increased warmth or erythema. Shoulders: Full range of motion without pain. No tenderness, weakness, swelling, increased warmth or erythema. Hips: Full range of motion without pain. Hip bursa: No tenderness to palpation Knees: ?Full range of motion. ?No tenderness, swelling, increased warmth or erythema.?No effusion or crepitations Ankles: Full range of motion. ?No tenderness, swelling, increased warmth or erythema.? Feet: ?Negative squeeze test. ?No tenderness to palpation or swelling of the MTPs. Tender points:?No tenderness to palpation of the bilateral trapezius, supraspinatus, greater trochanters, anterior costochondral junctions, bilateral gluteal areas, bilateral suboccipital muscle insertions SKIN Skin intact without rashes. Results Reviewed Results Reviewed: Laboratory Tests 03/22/24 03/22/24 09:50 09:59 WBC 2.9 L RBC 4.60 Hgb 13.3 Hct 40.1 Plt Count 283 ESR 7 Sodium 142 Potassium 4.0 Chloride 110 H Carbon Dioxide 21 L BUN 9 Creatinine 0.69 Random Glucose 83 Calcium 10.0 Total Bilirubin 0.4 AST 27 ALT 29 Alkaline Phosphatase 59 C-Reactive Protein < 0.10 Total Protein 7.7 Albumin 4.6 Urine Color Yellow Urine Appearance Clear Urine pH 5.5 Ur Specific Gerlaw 1.020 Urine Protein Negative Urine Glucose (UA) Negative U Random Total Protein 13 H Protein/Creatinin Ratio 0.06 Double Strand DNA Ab 19 H Complement C3 88 Complement C4 5 L Assessment & Plan Assessment & Plan (1) Lupus: Comment: dx 2013 +++DEMOND+++DsDNA, leukopenia, oral ulcers, inflammatory arthritis, rash on back suspicious for discoid lupus, class IV nephritis bx 2014, possible raynaud's ON HCQ since 2013 then lost to f/u MMF since 2013 or 2014 stopped around 2019 PDN 1-5 mg daily since then, then lost to f/u HCQ restarted 03/2023 + PDN 2.5 mg Code(s): M32.9 - Systemic lupus erythematosus, unspecified Category: Medical Plan: #SLE Patient is a 28 y.o. female with SLE currently improved after 2 months of Benlysta. Seen by ophthal and noted concerns. Contacted Dr. Karen Corcoran of [facility]: [phone]. Left a message Will follow up with ophthal regarding plaquenil use Plan - Decrease plaquenil to 200mg daily - Continue Benlysta 200mg SC weekly - Prednisone 2.5mg daily - Labs today: CBC, CMP, ESR, CRP, C3, C4, dsDNA, UA, UPC - RTC 4 months: CBC, CMP, ESR, CRP, C3, C4, dsDNA, UA, UPC, Hepatitis panel, T spot (2) Long-term use of hydroxychloroquine: Code(s): Z79.899 - Other group home (current) drug therapy Category: Medical Plan: #Long-term Use of Hydroxychloroquine Discussed with patient the risks and benefits of hydroxychloroquine in managing the rheumatic condition Benefits include: - Reduced pain, reduce mortality, maintenance of remission and reduction of flares Risks include: - GI upset, skin hyperpigmentation, retinal toxicity (especially after more than 5 years of use), myopathy Advised yearly ophthalmology visits Last ophthalmology visit: 06/2024 (3) Encounter for counseling regarding contraception: Code(s): Z30.09 - Encounter for other general counseling and advice on contraception Category: Medical Plan: #PreConception counselling Patient today express interest in having children in the future. Discussed that there are medications that are safe in and we should aim to have her lupus under control prior to starting planning. Patient is currently on control and has no current desires but is hoping for children in the future. Plan I spent 30 minutes reviewing the record and labs, taking a history, examining the patient, discussing the treatment plan and documenting in the medical record Orders: Orders Complement C3 4 Months M32.9 - Systemic lupus erythematosus, unspecified, Z79.899 - Other professional nursing assistant (current) drug therapy C Reactive Protein 4 Months M32.9 - Systemic lupus erythematosus, unspecified, Z79.899 - Other professional nursing assistant (current) drug therapy Erythrocyte Sedimentation Rate 4 Months M32.9 - Systemic lupus erythematosus, unspecified, Z79.899 - Other professional nursing assistant (current) drug therapy UA w Microscopic 4 Months M32.9 - Systemic lupus erythematosus, unspecified, Z79.899 - Other group home (current) drug therapy Complement C3 Today M32.9 - Systemic lupus erythematosus, unspecified, Z79.899 - Other group home (current) drug therapy Complement C4 Today M32.9 - Systemic lupus erythematosus, unspecified, Z79.899 - Other professional nursing assistant (current) drug therapy Complete Blood Count Auto Diff Today M32.9 - Systemic lupus erythematosus, unspecified, Z79.899 - Other professional nursing assistant (current) drug therapy C Reactive Protein Today M32.9 - Systemic lupus erythematosus, unspecified, Z79.899 - Other group home (current) drug therapy Erythrocyte Sedimentation Rate Today M32.9 - Systemic lupus erythematosus, unspecified, Z79.899 - Other group home (current) drug therapy UA w Microscopic Today M32.9 - Systemic lupus erythematosus, unspecified, Z79.899 - Other professional nursing assistant (current) drug therapy T Spot TB Today M32.9 - Systemic lupus erythematosus, unspecified, Z79.899 - Other professional nursing assistant (current) drug therapy Complement C4 4 Months M32.9 - Systemic lupus erythematosus, unspecified, Z79.899 - Other group home (current) drug therapy Complete Blood Count Auto Diff 4 Months M32.9 - Systemic lupus erythematosus, unspecified, Z79.899 - Other professional nursing assistant (current) drug therapy Comprehensive Met. Panel 4 Months M32.9 - Systemic lupus erythematosus, unspecified, Z79.899 - Other professional nursing assistant (current) drug therapy Protein Creatinine Ratio, Ur 4 Months M32.9 - Systemic lupus erythematosus, unspecified, Z79.899 - Other group home (current) drug therapy Comprehensive Met. Panel Today M32.9 - Systemic lupus erythematosus, unspecified, Z79.899 - Other group home (current) drug therapy Protein Creatinine Ratio, Ur Today M32.9 - Systemic lupus erythematosus, unspecified, Z79.899 - Other group home (current) drug therapy Hepatitis A,B,C Profile Today M32.9 - Systemic lupus erythematosus, unspecified, Z79.899 - Other group home (current) drug therapy Medications: Changed From hydroxychloroquine (Plaquenil) 200 mg PO BID 180 tabs 1RF M32.9 - Systemic lupus erythematosus, unspecified To hydroxychloroquine (Plaquenil) 200 mg PO DAILY 90 tabs 1RF M32.9 - Systemic lupus erythematosus, unspecified Refilled hydroxychloroquine (Plaquenil) 200 mg PO BID 180 tabs 1RF prednisone 2.5 mg PO DAILY 90 tabs 1RF Benlysta (belimumab) inject into upper thigh or abdomen; rotate sites 200 mg subcut QWEEK 4 mL 5RF NS M32.9 - Systemic lupus erythematosus, unspecified Coding Level of Care Code Est Pt Level 4 (86663) Complex EM visit Add On G2211 Diagnoses Lupus M32.9 Long-term use of hydroxychloroquine Z79.89 Encounter for counseling regarding contraception Z30.09
[2024-06-28 14:47] VITALS: BP 115/68; PULSE 89; O2SAT 99; BMI 28.8
== END 2024-06-28 15:19 | disposition home or self-care (01) ==
PROVIDERS: PCP Nurse Practitioner Family; Visit Provider Student in an Organized Health Care Education/Training Program
DX: M32.9 Systemic lupus erythematosus, unspecified (principal); Z79.899 Other long term (current) drug therapy; Z30.09 Encounter for other general counseling and advice on contraception
CPT/HCPCS: 99214; G2211

== ENCOUNTER 2024-10-25 11:00 | Outpatient (REF) | payer OTHER, SELFPAY ==
[2024-10-25 11:18] LABS: MANUAL DIFF FLAG NO
[2024-10-25 11:47] LABS: Basophils Percent Auto 0.7 % (0-2); Eosinophils Absolute Auto 0.2 X10*3/uL (0.0-0.4); Eosinophils Percent Auto 3.8 % (0-4); Hematocrit 40.7 % (37.0-47.0); Hemoglobin 13.8 g/dl (12.0-16.0); Imm Gran Abs Auto 0.02 X10*3/uL (0.00-0.03); Imm Gran Pct Auto 0.5 % (0.0-0.4); Lymphocytes Absolute Auto 1.6 X10*3/uL (1.2-4.9); Lymphocytes Percent Auto 37.8 % (20-40); Mean Corpuscular HGB Conc 33.9 g/dl (31.0-35.0); Mean Corpuscular Hemoglobin 29.5 pg (27.0-33.0); Mean Platelet Volume 9.4 fL (9.4-12.3); Monocytes Absolute Auto 0.4 X10*3/uL (0.1-1.2); Monocytes Percent Auto 9.3 % (2-11); Neutrophils Percent Auto 47.9 % (45-73); Platelet Count 279 X10*3/uL (160-400); Red Blood Count 4.68 X10*6/uL (4.20-5.50); Red Cell Distribution Width 13.1 % (11.0-16.0); White Blood Count 4.2 X10*3/uL (4.8-10.8)
[2024-10-25 12:00] LABS: Appearance Urine Clear; Color Urine Yellow; Glucose Urine UA Negative (Negative); Leukocyte Esterase Urine Negative (Negative); Nitrite Urine Negative (Negative); Specific Gravity - Urine 1.015 (1.005-1.025); Urine Blood Negative (Negative); Urine Ketones Negative (Negative); Urine Protein Negative (Neg-Trace)
[2024-10-25 12:03] LABS: Bacteria Urine Trace (None Seen); Hyaline Casts Urine 0-2 /LPF (0-2); RBC Urine 0-2 /HPF (0-2); Squamous Epithelial Cell Urine 0-2 /HPF (0-2); WBC Urine 0-5 /HPF (0-5)
[2024-10-25 12:24] LABS: Erythrocyte Sedimentation Rate 3 MM/HR (0-20)
[2024-10-25 12:39] LABS: Alanine Aminotransferase 32 U/L (0-31); Albumin Level 4.7 g/dL (3.5-5.0); Alkaline Phosphatase 60 U/L (39-117); Anion Gap 10 (12-20); Aspartate Amino Transferase 24 U/L (5-31); Bilirubin Total 0.4 mg/dL (0.0-1.0); Blood Urea Nitrogen 8 mg/dL (9-16); C Reactive Protein < 0.04 mg/dL (< or = 0.50); Calcium 9.6 mg/dL (8.4-10.2); Carbon Dioxide 26 mmol/L (22-29); Chloride 109 mmol/L (96-108); Estimated Glomerular Filt Rate > 60; Glucose Random 83 mg/dL (60-115); Potassium 4.3 mmol/L (3.3-5.1); Sodium 141 mmol/L (135-145); Total Protein 6.8 g/dL (6.5-8.0)
[2024-10-25 13:01] LABS: Creatinine Urine 60.23 mg/dL; Total Protein Urine Random < 7 mg/dL (<12)
--- OUTSIDE RECORDS SUMMARY | 2024-10-25 13:07 | XMS_ITS | Clinical Summary ---
Author Organization [facility] Address [address] [place] [address] Phone Care Team Providers Care Personal Security Specialist Name Role Phone Elton Lara MD Primary [...] - 19+ 3-dose series) 2013 Influenza Vaccine (Season Ended) 2025 Pneumococcal Vaccine: Peds ( 0 to 5 Years) and At-Risk Patients (6 to 49 Years) Aged Out No longer eligible b ased on patient's age to complete this topic Insurance Care Teams Personal Security Specialist Relationship Specialty Start Date End Date Elton Lara MD [address] [place] [address] PCP - General 05/28/20
[2024-10-27 03:24] LABS: Complement C3 94 mg/dL (83-193)
== END 2024-10-25 11:01 | disposition home or self-care (01) ==
LOC: HO.LAB 11:00
PROVIDERS: PCP Nurse Practitioner Family; Visit Provider Student in an Organized Health Care Education/Training Program
DX: M32.9 Systemic lupus erythematosus, unspecified (principal); Z79.899 Other long term (current) drug therapy
CPT/HCPCS: 36415; 80053; 81001; 82570; 84156; 85025; 85652; 86140; 86160

== ENCOUNTER 2024-10-28 08:57 | Outpatient (AMB) | payer OTHER, SELFPAY ==
--- NOTE | 2024-10-28 08:58 | A.OFFVIS_ITS ---
Vital Signs 10/28/24 09:02 Height 5 ft 7 in Weight 185 lb 3.013 oz BMI 29.0 BP 102/70 Blood Pressure Location Lt brachial Position Sitting Pulse 92 Pulse Source Pulse Oximeter Pulse Oximetry (%) 98 Oxygen Delivery Method Room Air Intake Visit Reasons: SLE Intake Note: Patient presents for SLE follow up. Allergies Sulfa (Sulfonamide Antibiotics) Allergy (Verified 10/28/24 09:01) Hives HPI Comments Details: Patient is a 28-year-old female with lupus here today for follow up Interval History: Patient last seen 06/28/24 with me. At that time her lupus was improved on Benlysta. Last follow up with her ophthal noted that she had a hole in her eye. Dr. Karen Corcoran. Decreased plaquenil to 200mg daily Today, Doing well Feet and ankle swell at the end of the day Sometimes also has stiffness/pain in her hands and elbows but this is manageable Rheumatologic History: SLE DDx 2013 +++DEMOND+++DsDNA, leukopenia, oral ulcers, inflammatory arthritis, rash on back suspicious for discoid lupus, class IV nephritis bx 2014, possible raynaud's ON HCQ since 2013 then lost to f/u MMF since 2013 or 2015 stopped around 2019 PDN 1-5 mg daily since then, then lost to f/u HCQ restarted 03/2023 + PDN 2.5 mg Initial history: This is at 27-year-old female with SLE who presents as a new patient. Her previous emergency dispatcher left the practice. Patient was diagnosed with SLE back in 2013. 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 Patient was maintained on hydroxychloroquine 200 mg Twice daily Prednisone 125 mg daily and CellCept 2500 mg daily. Patient apparently had been off CellCept since about 2019. Patient was for about 2 months in 2018 while on CellCept. She had 1 in total and 1 miscarriage. She is unaware of any history of DVT/PE. Patient had not been on any treatment for her SLE for the last 1-2 years as she did not have a emergency dispatcher. She also had not seen Dr. German (nephrology) in a long time. She states that she has a follow-up appointment in May. She mentions that she had lost 30 lb over the last 5-6 months by diet and exercise. She states that she is having diffuse pain especially in her wrists, hands, ankles, knees. The pain is worse in the morning. Associated stiffness that can last a few hours. Over the last month or so she has been having an itchy rash on her right ear and right index. She was prescribed triamcinolone cream by her PCP which helped with the itching but the rash remains. She also mentions that for years her fingers and toes are cold and change color in the cold. She denies any fevers. She denied any oral ulcers. She states however that for many years she gets gum bleeding when brushing her teeth. She denies any blood or froth in urine Current Rheumatology Medication(s): Benlysta 200mg SC every week Plaquenil 200mg bid Prednisone 2.5mg daily PFSH Medical History Nephritis Lupus Surgical History No history of previous surgery Family History Other Family history of heart disease Family hx-breast malignancy Social History Alcohol intake: current Alcohol intake frequency: does not drink Patient Tobacco Use Status: Never used Tobacco Female Reproductive History Menstrual Age of Menarche: 11 Review of Systems Const Details: Review of Systems Constitutional: Denies fever, chills, weight loss ENT: Denies vision changes, eye pain or eye redness, dental caries, dry mouth GI: Denies nausea, vomiting, diarrhea, abdominal pain, change in BM Pulm: Denies SOB, CHACON, hemoptysis, wheezing Cards: Denies chest pain, palpitations Skin: Denies Raynaud's, rash, nail changes, photosensitivity, EMBEDDED SYSTEMS SOFTWARE DEVELOPER: Denies headaches, weakness, paresthesias, recurrent falls MSK: as per HPI All other systems reviewed and are unremarkable except noted above Physical Exam Vital signs reviewed Physical Examination CONSTITUITIONAL Patient alert and cooperative. Well appearing and in no apparent painful distress HEENT Conjunctiva and sclera clear. ?Pupils equal round and reactive to light. ?No lymphadenopathy. ? CHEST/RESPIRATORY SYSTEM Normal respiratory effort and able to speak in complete sentences. ?Clear to auscultation bilaterally. ?No crackles, rales, rhonchi, wheezes heard. CARDIAC SYSTEM Regular rate and rhythm. ?S1 and S2 heard no murmurs. ?Radial pulses intact bilaterally MSK Hands: ?Good technician automated equipment strength bilaterally. No deformities noted. ?No synovitis noted to the MCPs, PIPs or DIPs. ?No tenderness to palpation of these joints. Wrists: ?Full range of motion at the wrists without pain. No further TTP of the wrists today Elbows: Full range of motion without pain. No tenderness, weakness, swelling, increased warmth or erythema. Shoulders: Full range of motion without pain. No tenderness, weakness, swelling, increased warmth or erythema. Hips: Full range of motion without pain. Hip bursa: No tenderness to palpation Knees: ?Full range of motion. ?No tenderness, swelling, increased warmth or erythema.?No effusion or crepitations Ankles: Full range of motion. ?No tenderness, swelling, increased warmth or erythema.? Feet: ?Negative squeeze test. ?No tenderness to palpation or swelling of the MTPs. Tender points:?No tenderness to palpation of the bilateral trapezius, supraspinatus, greater trochanters, anterior costochondral junctions, bilateral gluteal areas, bilateral suboccipital muscle insertions SKIN Skin intact without rashes. Results Reviewed Results Reviewed: Laboratory Tests 10/25/24 11:16 WBC 4.2 L RBC 4.68 Hgb 13.8 Hct 40.7 Plt Count 279 ESR 3 Sodium 141 Potassium 4.3 Chloride 109 H Carbon Dioxide 26 BUN 8 L Creatinine 0.59 AST 24 ALT 32 H Alkaline Phosphatase 60 C-Reactive Protein < 0.04 Laboratory Tests 10/25/24 11:16 Complement C3 94 Complement C4 8 L Laboratory Tests 06/28/24 15:40 Hepatitis A IgM Ab Nonreactive Hep Bs Antigen Negative Hep Bs Antibody NONREACTIVE Hep B Core Total Ab Nonreactive Hepatitis C Ab (EIA) Nonreactive TB Test (T-Spot) Com Negative Assessment & Plan Assessment & Plan (1) Lupus: Comment: dx 2013 +++DEMOND+++DsDNA, leukopenia, oral ulcers, inflammatory arthritis, rash on back suspicious for discoid lupus, class IV nephritis bx 2014, possible raynaud's ON HCQ since 2013 then lost to f/u MMF since 2013 or 2014 stopped around 2019 PDN 1-5 mg daily since then, then lost to f/u HCQ restarted 03/2023 + PDN 2.5 mg Code(s): M32.9 - Systemic lupus erythematosus, unspecified Category: Medical Plan: #SLE Patient is a 28 y.o. female with SLE currently in remission. Given her worsening retina issues, we will hold the plaquenil. Consider adding MTx if she has any recurrence of inflammatory arthritis Plan - Stop plaquenil - Continue Benlysta 200mg SC weekly - Prednisone 2.5mg daily - Encouraged her current strecthing regimen - RTC 4 months - Labs before visit: CBC, CMP, ESR, CRP, C3, C4, dsDNA, UA, UPC (2) Encounter for monitoring of belimumab therapy: Code(s): Z51.81 - Encounter for therapeutic drug level monitoring; Z79.620 - meterman (current) use of immunosuppressive biologic Plan: #skilled nursing Belimumab Discussed with patient the risks and benefits of hydroxychloroquine in managing the rheumatic condition Benefits include: - Reduced pain, reduce mortality, maintenance of remission and reduction of flares Risks include: - insomnia, injection site reactions, psychiatric events such as worsening depression/anxiety or suicidal ideation, increased risk of infection Plan I spent 30 minutes reviewing the record and labs, taking a history, examining the patient, discussing the treatment plan and documenting in the medical record Coding Level of Care Code Est Pt Level 3 (14648) Complex EM visit Add On G2211 Diagnoses Lupus M32.9 Encounter for monitoring of belimumab therapy Z51.81; Z79.620
[2024-10-28 09:02] VITALS: BP 102/70; PULSE 92; O2SAT 98; BMI 29.0
--- OUTSIDE RECORDS SUMMARY | 2024-10-28 09:21 | XMS_ITS | Clinical Summary ---
Author Organization [facility] Address [address] [facility] [address] [place] [address] Phone Care Team Providers Care Cardiology Fellow Name Role Phone Elton Lara MD Primary [...] to complete this topic Insurance Care Teams Cardiology Fellow Relationship Specialty Start Date End Date Elton Lara MD [address] [place] [address] PCP - General 05/28/20
== END 2024-10-28 09:23 | disposition home or self-care (01) ==
LOC: HO.RHE 08:57
PROVIDERS: PCP Nurse Practitioner Family; Visit Provider Student in an Organized Health Care Education/Training Program
DX: M32.9 Systemic lupus erythematosus, unspecified (principal); Z51.81 Encounter for therapeutic drug level monitoring; Z79.620 Long term (current) use of immunosuppressive biologic
CPT/HCPCS: 99213; G2211

== ENCOUNTER → 2024-10-28 08:57 | Outpatient (BNVA) | payer OTHER, SELFPAY | PROVIDERS: PCP Nurse Practitioner Family; Visit Provider Student in an Organized Health Care Education/Training Program | DX: Z51.81 Encounter for therapeutic drug level monitoring (principal); Z79.899 Other long term (current) drug therapy; M32.9 Systemic lupus erythematosus, unspecified | CPT/HCPCS: 99212 ==

== ENCOUNTER 2025-02-06 21:48 | Emergency (ER) | payer OTHER, SELFPAY ==
[2025-02-06 21:57] VITALS: BP 110/70; PULSE 71; RESP 16; TEMP 36.6; O2SAT 98; BMI 28.2
--- NOTE | 2025-02-06 23:25 | ECG_ITS ---
Test Reason : chest pressure Blood Pressure : */* mmHG Vent. Rate : 72 BPM Atrial Rate : 72 BPM P-R Int : 116 ms QRS Dur : 80 ms QT Int : 390 ms P-R-T Axes : 57 70 69 degrees QTcB Int : 427 ms Normal sinus rhythm Normal ECG When compared with ECG of 29-Jan-2023 01:32, Questionable change in QRS axis Referred By: Generic ED Physician Electronically Signed By: Cleve Cerna
[2025-02-06 23:43] VITALS: BP 101/59; PULSE 68; RESP 16; TEMP 36.7; O2SAT 98
--- NOTE | 2025-02-06 23:49 | ED_ITS ---
HPI - General Adult General Chief complaint: General Medical Stated complaint: HAS GUS, SEVERE BODY PAIN Time Seen by Provider: 02/06/25 23:49 Source: patient Mode of arrival: ambulatory Limitations: no limitations History of Present Illness ED Provider: Dr. Carrie Barragan HPI narrative: 29-year-old female with a history of lupus on daily steroids presenting with all over body pain ongoing for the last 2 weeks. Patient states she has been trying to get in touch with her information technology project manager but has been unable to get an appointment. Describes diffuse body aches and pains including all of her joints. Denies chest pain or difficulty breathing though. No reported fevers. No worsening swelling in her extremities. Denies nausea or vomiting but does admit to a poor appetite. No bowel changes or urinary complaints. Last menstrual cycle was about a week ago. Related Data Home Medications ?Medication ?Instructions ?Recorded ?Confirmed medroxyprogesterone 400 mg/mL 400 mg IM QWEEK 12/18/21 06/28/24 intramuscular suspension triamcinolone acetonide 0.1 % 1 appl topical BID-TID 1 05/19/22 06/28/24 topical cream Previous Rx's ?Medication ?Instructions ?Recorded hydroxychloroquine 200 mg tablet 200 mg PO DAILY #90 t abs 06/28/24 (Plaquenil) Benlysta 200 mg/mL subcutaneous 200 mg subcut QWEEK #4 mL 02/03/25 auto-injector (belimumab) prednisone 2.5 mg tablet 2.5 mg PO DAILY #90 tabs gabapentin 300 mg capsule 300 mg PO TID #14 caps 02/07 Allergies Allergy/AdvReac Type Severity Reaction Status Date / Time Sulfa (Sulfonamide Allergy Hives Verified 02/06/25 21:59 Antibiotics) Review of Systems 2 Review of Systems: As per HPI, full review of systems performed and negative but for the above mentioned pertinent positives and negatives. [facility] Past Medical History Medical History Nephritis Lupus Surgical History No history of previous surgery Family History Family History Other Family history of heart disease Family hx-breast malignancy Social History Social History Alcohol intake: current Alcohol intake frequency: does not drink Patient Tobacco Use Status: Never used Tobacco Smoked in Last 30 Days: No Use of substances other than those prescribed or required for medical reasons: No Advance Directives: No Advance Directives Information Provided: Yes Do you have a plan to hurt others: No Plan Patient : No Physical Exam ED Exam Exam: GENERAL: Anxious, tearful, appears uncomfortable. SKIN: Normal skin color for ethnicity, warm, dry, intact, no rashes noted. HEENT: Normocephalic, atraumatic, no stridor, posterior oropharynx nonerythematous, dentition intact, EOMI. NECK: Soft, supple, full ROM, midline structures nontender, no step-offs, no deformities, no lymphadenopathy. CHEST: Heart regular rhythm, no murmurs, symmetric chest rise and fall, no crepitus. PULMONARY: Clear to auscultation bilaterally, no labored breathing, no wheezes/rhales/ rhonchi. ABDOMINAL: Soft, nondistended, nontender, positive bowel sounds in all quadrants. : Deferred. MUSCULOSKELETAL: Normal tone, full range of motion, no deformities, no peripheral edema. NEURO: Alert and oriented x3, CN II through XII intact, equal strength and sensation bilateral upper and lower extremities, no focal neurologic deficits. PSYCHIATRIC: Anxious affect, tearful, fluid speech, good eye contact and appropriate demeanor. Vital Signs: Vital Signs - 24 hr 02/06/25 21:57 02/06/25 23:43 02/07/25 02:41 Temperature 98 F 98.0 F 98.0 F Pulse Rate 71 68 102 H Respiratory Rate 16 16 20 Blood Pressure 110/70 101/59 L 103/70 Pulse Oximetry 98 98 99 Oxygen Delivery Method Room Air Room Air Room Air BMI result Body Mass Index 28.2 Medications Administered Discontinued Medications Generic Name Dose Route Start Last Admin Trade Name Freq PRN Reason Stop Dose Admin Acetaminophen 975 mg 02/06/25 23:50 02/07/25 00:05 Acetaminophen 325 Mg Tablet PO 02/06/25 23:51 975 mg ONCE ONE Administration Gabapentin 300 mg 02/06/25 23:50 02/07/25 00:05 Gabapentin 300 Mg Capsule PO 02/06/25 23:51 300 mg ONCE ONE Administration Hydromorphone HCl 1 mg 02/07/25 01:02/07/25 02:43 Hydromorphone Hcl 1 Mg/Ml Syringe IM 02/07/25 01:10 1 mg ONCE ONE Administration Protocol Methylprednisolone Sodium Succinate 60 mg 02/07/25 01:02/07/25 02:43 Methylprednisolone Sod Succ 125 Mg/2 Ml Vial IM 02/07/25 01:10 60 mg ONCE ONE Administration Medical Decision Making Medical Decision Making [facility] Narrative: 29-year-old female with history of lupus presenting with diffuse myalgias and joint pain ongoing for 2 weeks. Differential diagnosis includes lupus flare, her rhabdomyolysis, viral syndrome, electrolyte abnormality, renal insufficiency, among many others. Patient is nontoxic appearing however she is rather tearful. She seems frustrated she is having a hard time getting in touch with her rheumatology office. We will medicate for pain. Anticipate discharge to follow up with them. She is currently on prednisone and this is the mainstay of treatment for lupus flare. 5:54 AM 02/07/2025 (Dr. Carrie Barragan, D.O.) patient feeling improved after medications, tolerating oral intake in the emergency department without assistance. Plan for discharge home to follow up with Rheumatology as an outpatient. Discharged home in stable condition Differential Diagnosis Differential Diagnoses: The differential diagnosis associated with the presentation includes (as above) Admission/Observation Consideration of admission/observation: Escalation of care including admission/observation considered Lab Data [facility] Lab Attestation statement: I reviewed the patient's lab results. 02/06/25 23:54 02/06/25 23:54 Labs: Lab Results 02/06/25 Range/Units 23:54 WBC 4.8 (4.8-10.8) X10*3/uL RBC 4.07 L (4.20-5.50) X10*6/uL Hgb 12.2 (12.0-16.0) g/dl Hct 34.7 L (37.0-47.0) % MCV 85.3 (80.0-98.0) fL MCH 30.0 (27.0-33.0) pg MCHC 35.2 H (31.0-35.0) g/dl RDW 13.1 (11.0-16.0) % Plt Count 258 (160-400) X10*3/uL MPV 9.1 L (9.4-12.3) fL Immature Gran % (Auto) 0.4 (0.0-0.4) % Neut % (Auto) 44.3 L (45-73) % Lymph % (Auto) 42.9 H (20-40) % [place] % (Auto) 8.5 (2-11) % Eos % (Auto) 3.1 (0-4) % Baso % (Auto) 0.8 (0-2) % Lymph # (Auto) 2.1 (1.2-4.9) X10*3/uL [place] # (Auto) 0.4 (0.1-1.2) X10*3/uL Eos # (Auto) 0.2 (0.0-0.4) X10*3/uL Baso # (Auto) 0.0 (0.0-0.2) X10*3/uL Abs Immat Gran (auto) 0.02 (0.00-0.03) X10*3/uL Absolute Neuts (auto) 2.1 (2.0-8.3) x10*3/uL Absolute Nucleated RBC 0.000 (0.0-0.012) X10*3/uL Nucleated RBC % (auto) 0.0 (0.0-0.2) /100WBC Sodium 140 (135-145) mmol/L Potassium 3.6 (3.3-5.1) mmol/L Chloride 112 H (96-108) mmol/L Carbon Dioxide 22 (22-29) mmol/L Anion Gap 10 L (12-20) BUN 10 (9-16) mg/dL Creatinine 0.57 (0.5-1.4) mg/dL Estim Creat Clear Calc 153.3 Estimated GFR > 60 Random Glucose 89 (60-115) mg/dL Calcium 8.8 D (8.4-10.2) mg/dL Magnesium 1.9 (1.6-2.6) mg/dL Total Bilirubin 0.3 (0.0-1.0) mg/dL AST 22 (5-31) U/L ALT 24 (0-31) U/L Alkaline Phosphatase 66 (39-117) U/L Troponin I High Sens < 2.7 (<3.5-17.0) ng/L Total Protein 6.4 L (6.5-8.0) g/dL Albumin 4.4 (3.5-5.0) g/dL Beta HCG, Quant < 2 mIU/mL COVID-19 (JOAQUIN) Negative (Negative) COVID-19 Clin Com See Note Influenza Type A (KARUNA) Negative (Negative) Influenza Type B (KARUNA) Negative (Negative) Influenza A & B Note See Note External Record Review External record reviewed: Inpatient record Prescription Management I considered prescription management with: Pain Medication Chronic Conditions Patient?s care impacted by: Other (Lupus) Social Determinants Patient?s care significantly limited by Social Determinants of Health including: Problems related to primary support group Discharge Plan Discharge Clinical Impression: Lupus arthritis Patient Disposition: Home, Self-Care Instructions: Chronic Pain (ED), Connective Tissue Disorders (ED) Additional Instructions: Follow-up with your information technology project manager as scheduled. Return to the ER with any new or worsening symptoms including: Fevers greater than 100?, worsening pain despite medication, any new symptom that concerns you. Call 911 with any medical emergency. Prescriptions: New gabapentin 300 mg capsule 300 mg PO TID Qty: 14 0RF No Action Benlysta 200 mg/mL auto-injector 200 mg subcut QWEEK Qty: 4 0RF Rx Instructions: inject into upper thigh or abdomen; rotate sites prednisone 2.5 mg tablet 2.5 mg PO DAILY Qty: 90 1RF medroxyprogesterone 400 mg/mL suspension 400 mg IM QWEEK triamcinolone acetonide 0.1 % cream 1 appl topical BID-TID hydroxychloroquine [Plaquenil] 200 mg tablet 200 mg PO DAILY Qty: 90 1RF Stand Alone Forms: Work/School Release Print Language: Slovak
--- OUTSIDE RECORDS SUMMARY | 2025-02-07 00:39 | XMS_ITS | Encounter Summary ---
Author Organization [facility] Address [address] [address] Phone Care Team Providers Care Knife Blade Polisher Name Role Phone Dee Hernandez NP Primary Care Provider Pcp, Unknown Primary Care Provider Unavailabhilash e Elton Lara MD Primary Care Prov ider Pcp, Unknown Primary Care Provider Unavailabhilash e Elton Lara MD Unavailable + Pcp, Unknown Primary Care Provider Unavailabl e Encounter Details Date Type Department Care Team (Late st Contact Info) Description 05/02/2020 Transcribe Orders Virtual Department [address] [place] [address] Madonna Alvarez NP [address] [place] [id number] [email or web address] Exposure to SARS-associated coronavirus (Primary Dx) Social History Tobacco Use Types Packs/Day Years Used Date Smoking Tobacco: Never Smokeless Tobacco: Never Alcohol Use Standard Drinks/Week Comments No 0 (1 standard drink = 0.6 oz pur e alcohol) Comments Unknown Sex and Gender Information Value Date Recorded Sex Assigned at Female 10/21/2021 10:55 AM EDT Legal Sex Female 10:55 AM EDT Gender Identity Female 10/21/2021 10:55 AM EDT Sexual Orientation Straight 10/21/2021 10 :55 AM EDT documented as of this encounter Plan of Treatment Not on file documented as of this encounter Results * COVID-19 PCR Order (05/04/2020 8:54 AM EST) COVID Testing Status Specimen received in analyzing lab. [facility] Symptomatic? NO [facility] Other 05/04/2020 8:54 AM EST 05/04/2020 12:26 PM EST Madonna Alvarez NETWORK SPECIALIST BODY FLUIDS AND STOO LS ORDERABLES Final Result [facility] [address] [place] [address] [facility] [address] [place] [phone] documented in this encounter Visit Diagnoses Diagnosis Exposure to SARS-associated coronavirus- Primary documented in this encounter Additional Health Concerns Infection Onset Date Last Indicated Resolved Time CoV-Exposed Comment:Recent close contact 05/02/2020 05/02/2020 05/16/2020 1:25 AM EST documented as of this encounter Care Teams Knife Blade Polisher Relationship Specialty Start Date End Date Dee Hernandez NP [address] [place] [id number] PCP - General 04/27/18 05/06/20 Pcp, Unknown PCP - General 05/07/20 06/28/21 Elton Lara MD [email or web address] PCP - General Family Medicine 06/29/21 10/17/21 Pcp, Unknown PCP - General 10/18/21 11/18/21 Pcp, Unknown PCP - General 11/19/21 Elton Lara MD Family Medicine 10/18/21 documented as of this encounter Additional Source Comments The information contained in this document represents components of the legal health record. It is not the complete legal health record.[facility]
--- OUTSIDE RECORDS SUMMARY | 2025-02-07 00:39 | XMS_ITS | Clinical Summary ---
Author Organization [facility] Address [address] [address] Phone Care Team Providers Care Propeller Inspector Name Role Phone Elton Lara MD Unavailable + Pcp, Unknown Primary Care Provider Unavailabl e Allergies Active Allergy Reactions Criticality Noted Date Comments Sulfa (Sulfonamide Antibiotics) 05/19 Medications predniSONE (DELTASONE) 10 MG tablet Take 5 mg by mouth daily. 5mg Active mycophenolate mofetil (CELLCEPT) 500 mg tablet Take 1,500 mg by mouth daily. Active mycophenolate mofetil (CELLCEPT) 500 mg tablet Take 1,000 mg by mouth nightly at bedtime. Active hydroxychloroqu ine (PLAQUENIL) 200 mg tablet Take 200 mg by mouth 2 (two) times a day. Active cholecalciferol (VITAMIN D3) 2,000 unit capsule Take 2,000 Units by mouth daily. Active calcium citrate (CALCITRATE) 950 mg (200 mg elemental) tablet Take 1 tablet by mouth daily. Active levETIRAcetam (KEPPRA) 500 MG tablet Take 1 tablet (500 mg total) by mouth 2 (two) times a day. 60 tablet 2 Active Additional Information Patient not taking.Reported on 05/13/2023 ibuprofen (ADVIL,MOTRIN) 600 MG tablet Take 1 tablet (600 mg total) by mouth every 8 (eight) hours as needed for pain (specific location in comments). 60 tablet 1 4 Active Active Problems No known active problems Social History Tobacco Use Types Packs/Day Years Used Date Smoking Tobacco: Never Smokeless Tobacco: Never Tobacco Cessation:Counseling Given: Not Answered Alcohol Use Standard Drinks/Week Comments No 0 (1 standard drink = 0.6 oz pur e alcohol) Education Answer Date Recorded Are you interested in more education? Not on [place] e 09/13/2022 Are you concerned about learning? Not on file 09/13/2022 No 09/13/2022 No 09/13/2022 Digital Access Answer Date Recorded No 10/12/2022 No 10/12/2022 Reliable internet access at home? Not on file 10/12/2022 Device with a working camera? Not on file Intimate Partner Violence Answer Date R ecorded Are you denied basic needs s uch as food, clothing, or medical care? No 05/27/2023 In the past 12 months have y ou been in a relationship with a person who hurts, threatens, or tries to control you? No 05/27/2023 Are you denied basic needs s uch as food, clothing, or medical care? No 05/27/2023 In the past 12 months have y ou been in a relationship with a person who hurts, threatens, or tries to control you? No 05/27/2023 Comments No Sex and Gender Information Value Date Recorded Sex Assigned at Female 10/21/2021 10:55 AM EDT Legal Sex Female 10:55 AM EDT Gender Identity Female 10/21/2021 10:55 AM EDT Sexual Orientation Straight 10/21/2021 10 :55 AM EDT Last Filed Vital Signs Vital Sign Reading Time Taken Comments Blood Pressure 116/82 05/27/2023 11:00 AM EST Pulse 74 05/27/2023 11:00 AM EST Temperature 36.5 C (97.7 F) 05/27/2023 10:26 AM EST Respiratory Rate 10 05/27/2023 11:00 AM EST Oxygen Saturation 100% 05/27/2023 11:00 AM EST Inhaled Oxygen Concentration - - Weight 81.6 kg (180 lb) 05/13/2023 3:51 PM EST Height 170.2 cm (5' 7 ) 05/13/2023 3:51 PM EST Body Mass Index 28.19 05/13/2023 3:51 PM EST Plan of Treatment Health Maintenance Due Date Last Done Comments DEPRESSION SCREENING 2006 HEPATITIS C SCREENING 2012 HIV ONE-TIME SCREENING (18-65 YEARS) 2012 PNEUMOCOCCAL VACCINES (0-49 years) (1 of 2 - PCV) 2013 INFLUENZA VACCINE (#1) 2024 , 05/02/2022, 05/20/2021, Additional history exists COVID-19 VACCINE (5 - 2024- season) 2025 05/02/2022, 03/12/2021, 07/12/2020, Additional history exists PAP SMEAR 10/15/2027 10/14/2024, 06/0 06/2021, 03/11/2017 Adult Td,Tdap Booster 12/20/2031 12/19/2021 , 04/08/2011, 06/25/2010 MENINGOCOCCAL VACCINES (ACWY) Aged Out 06/25/2010 No longer eligible based on patient's age to complete this topic SMOKING STATUS SCREENING (Once After 26 Yrs) Completed 05/26/2023 HEPATITIS A VACCINES Aged Out No long er eligible based on patient's age to complete this topic HIB VACCINES Aged Out No longer eligi ble based on patient's age to complete this topic MENINGOCOCCAL VACCINES (B) Aged Out N o longer eligible based on patient's age to complete this topic Medical Devices Implanted Type Area Rough And Truing Machine Operator Device Identifier Shelf Expiration Date Model / Serial / Lot Implant Multiplanar Anatomic Lapiplasty System S4a - [id number] Implanted:Qty: 1 on 05/27/2023 by Nia De La O DPM at [facility] Left: Foot [employer] 10/23/2027 SK39 / / [id number] Screw Bone 2.7mm Locking Lapiplasty Fastpitch High Pitch - [id number] Implanted:Qty: 2 on 05/27/2023 by Nia De La O DPM at [facility] Left: Foot [employer] 10/11/2027 SD22 / / [id number] Screw Bone 3.5mm Transverse Lapiplasty System - [id number] Implanted:Qty: 1 on 05/27/2023 by Nia De La O DPM at [facility] Left: Foot [employer] 03/19/2027 SK19 / / [id number] Procedures Procedure Name Priority Date/Time Associated Diagnosis Comments PAP TEST Routine 10/14/2024 12:00 AM EDT from Last 3 Months or Most Recently Relevant to Health Maintenance Results * Pap Test (10/14/2024 12:00 AM EDT) 10/14/2024 10/17/2024 9:5 2 AM EDT Narrative SEE NARRATIVE - 10/20/2024 10:10 AM EDT [address] [address] [place] We[place]: Fili Sal MD FENCE POST DRIVER Cytology Report FINAL DIAGNOSIS A. PAP SMEAR (THIN PREP) CE: SPECIMEN ADEQUACY: Satisfactory for evaluation; transformation zone present. INTERPRETATION: NEGATIVE FOR INTRAEPITHELIAL LESION OR MALIGNANCY. Reactive changes. This specimen was analyzed by the automated ThinPrep Imaging System (Tech21.) and manually rescreened by a hog tender and/or pathologist. Electronically Signed Out By: ANA Barriga MD(ASCP) By his/her signature above, the pathologist listed as making the Final Diagnosis certifies that he/she has personally reviewed this case and confirmed or corrected the diagnosis. The Pap test is a screening test primarily for squamous cancers and precursors and has associated false-negative and false-positive results. New technologies such as liquid-based preparations may decrease but will not eliminate all false-negative results. Regular sampling and follow-up of unexplained clinical signs and symptoms are recommended to minimize false negative results. CLINICAL HISTORY Date of Last Menstrual Period: 09-15-2024 Contraceptive History: Depo Other Clinical Conditions: Screening Pap SPECIMEN SOURCE A: PAP SMEAR (THIN PREP) CE Patient Name: SIMIN VAZQUEZ : 1995 (Age: 29) Sex: F Institution: [facility] Location: [facility] Date of Collection: 10/14/2024 Date of Reported: 10/20/2024 10:10 Results to: Madonna Alvarez CONTROL OFFICER Madonna Alvarez [facility] CYTOLOGY ORDERABLES Final Result SEE NARRATIVE from Last 3 Months or Most Recently Relevant to Health Maintenance Insurance [facility] NON NSPG PCP [place] [facility] NON NSPG PCP S[place] [facility] NON NSPG PCP [facility] [facility]G PCP [place] [facility] NON NSPG [facility]CP [facility] Advance Directives For more information, please contact: [phone] (9AM - 5PM [facility], Thursday-Thursday) Documents on File Type Date Recorded Patient Industrial Refrigeration Mechanic Expl anation Healthcare Proxy 05/28/2023 12:21 PM Care Teams Propeller Inspector Relationship Specialty Start Date End Date Pcp, Unknown PCP - General 11/19/21 Elton Lara MD [email or web address] 10/18/21 Additional Source Comments The information contained in this document represents components of the legal health record. It is not the complete legal health record.[facility]
--- OUTSIDE RECORDS SUMMARY | 2025-02-07 00:39 | XMS_ITS | Encounter Summary ---
Author Organization [facility] Address [address] [address] Phone Care Team Providers Care Synchronizer Name Role Phone Elton Lara MD Unavailable + Pcp, Unknown Primary Care Provider Unavailabl e Encounter Details Date Type Department Care Team (Late st Contact Info) Description 05/27/2023 Procedure Pass OR Admitting Dept - Virtual Department [address] [place] [address] Social History Tobacco Use Types Packs/Day Years [...] on file documented as of this encounter Visit Diagnoses Not on filedocumented in this encounter Care Teams Synchronizer Relationship Specialty Start Date End Date Pcp, Unknown PCP - General 11/19/21 Elton Lara MD [email or web address] Family Medicine 10/18/21 documented as of this encounter Additional Source Comments The information contained in this document represents components of the legal health record. It is not the complete legal health record.[facility]
--- OUTSIDE RECORDS SUMMARY | 2025-02-07 00:39 | XMS_ITS | Encounter Summary ---
Author Organization [facility] Address [address] [address] Phone Care Team Providers Care Inspector Metal Can Name Role Phone Elton Lara MD Unavailable + Pcp, Unknown Primary Care Provider Unavailabl e Encounter Details Date Type Department Care Team (Late st Contact Info) Description 12/19/2021 Transcribe Orders Virtual Department [address] [place] [address] Madonna Alvarez NP [address] [place] [id number] [email or web address] Convulsions, unspecified convulsion type (Primary Dx) Social History Tobacco Use Types [...] documented as of this encounter Visit Diagnoses Diagnosis Convulsions, unspecified convulsion type- Primary documented in this encounter Care Teams Inspector Metal Can Relationship Specialty Start Date End Date Pcp, Unknown PCP - General 11/19/21 Elton Lara MD [email or web address] Family Medicine 10/18/21 documented as of this encounter Additional Source Comments The information contained in this document represents components of the legal health record. It is not the complete legal health record.[facility]
--- OUTSIDE RECORDS SUMMARY | 2025-02-07 00:39 | XMS_ITS | Clinical Summary ---
Author Organization [facility] Address [address] [facility] [address] [place] [address] Phone Care Team Providers Care Spray Ii Painter Name Role Phone Elton Lara MD Primary [...] 19+ 3-dose series) 2013 Influenza Vaccine (#1) 2025 Pneumococcal Vaccine: Peds ( 0 to 5 Years) and At-Risk Patients (6 to 49 Years) Aged Out No longer eligible b ased on patient's age to complete this topic Insurance Care Teams Spray Ii Painter Relationship Specialty Start Date End Date Elton Lara MD [address] [place] [address] PCP - General 05/28/20
--- OUTSIDE RECORDS SUMMARY | 2025-02-07 00:39 | XMS_ITS | Encounter Summary ---
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 It is not the complete legal health record.[facility]
--- OUTSIDE RECORDS SUMMARY | 2025-02-07 00:39 | XMS_ITS | Encounter Summary ---
Author Organization [facility] Address [address] [address] Phone Care Team Providers Care Legal Executive Assistant Name Role Phone Dee Hernandez NP Primary Care Provider [phone] Pcp, Unknown Primary Care Provider UnavailElton Poole MD Primary Care Prov ider Pcp, Unknown Primary Care Provider Unavailabhilash e Elton Lara MD Unavailable + Pcp, Unknown Primary Care Provider Unavailabl e Encounter Details Date Type Department Care Team (Late st Contact Info) Description 04/05/2020 Procedure Pass [facility], Ct Scan - [address] [address] Social History Tobacco Use Types Packs/Day Years [...] Diagnoses Not on filedocumented in this encounter Additional Health Concerns Infection Onset Date Last Indicated Resolved Time CoV-Risk 04/08/2020 04/08/2020 04/22/2020 1:24 AM EST CoV-Exposed Comment:Recent close contact 05/02/2020 05/02/2020 05/16/2020 1:25 AM EST documented as of this encounter Care Teams Legal Executive Assistant Relationship Specialty Start Date End Date Dee Hernandez NP [address] [place] [phone] PCP - General 04/27/18 05/06/20 Pcp, Unknown PCP - General 05/07/20 06/28/21 Elton Lara MD [email or web address] PCP - General Family Medicine 06/29/21 10/17/21 Pcp, Unknown PCP - General 10/18/21 11/18/21 Pcp, Unknown PCP - General 11/19/21 Elton Lara MD Family Medicine 10/18/21 documented as of this encounter Additional Source Comments The information contained in this document represents components of the legal health record. It is not the complete legal health record.[facility]
[2025-02-07 02:41] VITALS: BP 103/70; PULSE 102; RESP 20; TEMP 36.7; O2SAT 99
[2025-02-07 05:49] VITALS: BP 104/63; PULSE 99; RESP 16; TEMP 36.8; O2SAT 97
[2025-02-07 06:02] VITALS: BP 104/63; PULSE 99; RESP 16; TEMP 36.8; O2SAT 97
== END 2025-02-07 06:28 | disposition home or self-care (01) ==
PROVIDERS: Emergency Provider Emergency Medicine; PCP Nurse Practitioner Family
DX: M32.10 Systemic lupus erythematosus, organ or system involvement unspecified (principal); M32.14 Glomerular disease in systemic lupus erythematosus; R63.0 Anorexia; Z79.52 Long term (current) use of systemic steroids
CPT/HCPCS: 80053; 83735; 84484; 84702; 85025; 87502; 87635; 93005; 99212; 99284; J1171; J2919

== ENCOUNTER → 2025-02-06 23:25 | Outpatient (BNV) | payer OTHER, SELFPAY | PROVIDERS: Emergency Provider Emergency Medicine; PCP Nurse Practitioner Family; Visit Provider Internal Medicine Cardiovascular Disease | DX: R07.89 Other chest pain (principal) | CPT/HCPCS: 93010 ==

== ENCOUNTER 2025-02-07 09:15 | Outpatient (AMB) | payer OTHER, SELFPAY ==
--- NOTE | 2025-02-07 09:22 | A.OFFVIS_ITS ---
Vital Signs 02/07/25 09:34 Height 5 ft 7 in Weight 192 lb 7.417 oz BMI 30.1 BP 120/80 Blood Pressure Location Lt brachial Position Sitting Pulse 115 H Pulse Source Pulse Oximeter Pulse Oximetry (%) 97 Oxygen Delivery Method Room Air Intake Visit Reasons: SLE Intake Note: Patient presents for SLE follow up. Allergies Sulfa (Sulfonamide Antibiotics) Allergy (Verified 02/07/25 09:30) Hives Medication List - Last Reconciled 02/07/25 by Britta Taylor MD Benlysta (belimumab) 200 mg subcut QWEEK NS gabapentin 300 mg PO TID prednisone 2.5 mg PO DAILY triamcinolone acetonide 0.1% 1 appl topical BID-TID HPI Comments Details: Patient is a 29-year-old female with lupus here today for follow up Interval History: Patient last seen 10/28/24 with me. - On Benlysta 200mg SC every week, plaquenil 200mg bid and prednisone 2.5mg daily - Doing well - Feet and ankle swell at the end of the day - Sometimes also has stiffness/pain in her hands and elbows but this is manageable - Worsening retina issues, plaquenil stopped Today - On Benlysta 200mg SC every week and prednisone 2.5mg daily - Has been having whole body pain for the past month - Worse this yesterday and went to the ER - Also complaining of chest pressure, no positional exacerbation Rheumatologic History: SLE DDx 2013 +++DEMOND+++DsDNA, leukopenia, oral ulcers, inflammatory arthritis, rash on back suspicious for discoid lupus, class IV nephritis bx 2014, possible raynaud's ON HCQ since 2013 then lost to f/u MMF since 2013 or 2015 stopped around 2019 PDN 1-5 mg daily since then, then lost to f/u HCQ restarted 03/2023 + PDN 2.5 mg Initial history: This is at 27-year-old female with SLE who presents as a new patient. Her previous network professional left the practice. Patient was diagnosed with SLE back in 2013. 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 Patient was maintained on hydroxychloroquine 200 mg Twice daily Prednisone 125 mg daily and CellCept 2500 mg daily. Patient apparently had been off CellCept since about 2019. Patient was for about 2 months in 2018 while on CellCept. She had 1 in total and 1 miscarriage. She is unaware of any history of DVT/PE. Patient had not been on any treatment for her SLE for the last 1-2 years as she did not have a network professional. She also had not seen Dr. German (nephrology) in a long time. She states that she has a follow-up appointment in May. She mentions that she had lost 30 lb over the last 5-6 months by diet and exercise. She states that she is having diffuse pain especially in her wrists, hands, ankles, knees. The pain is worse in the morning. Associated stiffness that can last a few hours. Over the last month or so she has been having an itchy rash on her right ear and right index. She was prescribed triamcinolone cream by her PCP which helped with the itching but the rash remains. She also mentions that for years her fingers and toes are cold and change color in the cold. She denies any fevers. She denied any oral ulcers. She states however that for many years she gets gum bleeding when brushing her teeth. She denies any blood or froth in urine Current Rheumatology Medication(s): Benlysta 200mg SC every week Prednisone 2.5mg daily PFSH Medical History Nephritis Lupus Surgical History No history of previous surgery Family History Other Family history of heart disease Family hx-breast malignancy Social History Alcohol intake: current Alcohol intake frequency: does not drink Patient Tobacco Use Status: Never used Tobacco Female Reproductive History Menstrual Age of Menarche: 11 Review of Systems Const Details: Review of Systems Constitutional: Denies fever, chills, weight loss ENT: Denies vision changes, eye pain or eye redness, dental caries, dry mouth GI: Denies nausea, vomiting, diarrhea, abdominal pain, change in BM Pulm: Denies SOB, CHACON, hemoptysis, wheezing Cards: Denies chest pain, palpitations Skin: Denies Raynaud's, rash, nail changes, photosensitivity, CHILDREN'S AUTHOR: Denies headaches, weakness, paresthesias, recurrent falls MSK: as per HPI All other systems reviewed and are unremarkable except noted above Physical Exam Exam Exam: Vital signs reviewed Physical Examination CONSTITUITIONAL Patient alert and cooperative. Well appearing and in no apparent painful distress MSK Hands * Right Hand: Able to make a fist. Swelling and TTP of the MCPs and PIPs * Left Hand: Able to make a fist. Swelling and TTP of the MCPs and PIPs Wrists * Right Wrist: Full ROM to flexion and extension. No swelling. But TTP * Left Wrist: Full ROM to flexion and extension. No swelling. But TTP Elbows * Right Elbow: Full ROM. No swelling or TTP. No TTP of the medial epicondyle. No TTP of the lateral epicondyle * Left Elbow: Full ROM. No swelling or TTP. No TTP of the medial epicondyle. No TTP of the lateral epicondyle Shoulders * Right shoulder: Full ROM. No swelling noted. No TTP of the AC joint. No TTP of the subacromial bursa. No TTP of the posterior shoulder * Left shoulder: Full ROM. No swelling noted. No TTP of the AC joint. No TTP of the subacromial bursa. No TTP of the posterior shoulder Knees * Right knee: Full ROM. No swelling noted. TTP of the knee joint line. No TTP of pes anserine bursa * Left knee: Full ROM. No swelling noted. TTP of the knee joint line. No TTP of pes anserine bursa. Ankles * Right ankle: Good ankle dorsiflexion and plantar flexion. No swelling. TTP of the ankle joint * Left ankle: Good ankle dorsiflexion and plantar flexion. No swelling. TTP of the ankle joint Feet * Right foot: Positive squeeze test * Left foot: Positive squeeze test Tender points? * No tenderness to palpation of the bilateral trapezius, supraspinatus, anterior costochondral junctions, bilateral suboccipital muscle insertions SKIN No rashes Vital Signs: BMI result Body Mass Index 30.1 Results Reviewed Results Reviewed: Laboratory Tests 10/25/24 02/06/25 11:16 23:54 WBC 4.8 RBC 4.07 L Hgb 12.2 Hct 34.7 L Plt Count 258 ESR 3 Sodium 140 Potassium 3.6 Chloride 112 H Carbon Dioxide 22 BUN 10 Creatinine 0.57 AST 22 ALT 24 C-Reactive Protein < 0.04 Laboratory Tests 03/22/24 10/25/24 09:59 11:16 Double Strand DNA Ab 19 H Complement C3 88 94 Complement C4 5 L 8 L Laboratory Tests 06/28/24 15:40 Hepatitis A IgM Ab Nonreactive Hep Bs Antigen Negative Hep Bs Antibody NONREACTIVE Hep B Core Total Ab Nonreactive Hepatitis C Ab (EIA) Nonreactive TB Test (T-Spot) Com Negative Assessment & Plan Assessment & Plan (1) Lupus: Comment: dx 2013 +++DEMOND+++DsDNA, leukopenia, oral ulcers, inflammatory arthritis, rash on back suspicious for discoid lupus, class IV nephritis bx 2014, possible raynaud's ON HCQ since 2013 then lost to f/u MMF since 2013 or 2014 stopped around 2019 PDN 1-5 mg daily since then, then lost to f/u HCQ restarted 03/2023 + PDN 2.5 mg Code(s): M32.9 - Systemic lupus erythematosus, unspecified Category: Medical Plan: #SLE Patient is a 29 y.o. female with SLE currently in a flare of her disease likely on a background of cessation of plaquenil. Post hopsital follow up Plan - Continue Benlysta 200mg SC weekly - Prednisone Take 15mg for 7 days then 10mg for 7 days then 5mg for 7 days then back 2.5mg - Prednisone 2.5mg daily - Encouraged her current strecthing regimen - Azathioprine 150mg daily - Labs today: C3, C4, dsDNA, UA, UPC - RTC 4 months - Labs before visit: CBC, CMP, ESR, CRP, C3, C4, dsDNA, UA, UPC (2) correction systemic steroid user: Code(s): Z79.52 - correction (current) use of systemic steroids Plan: #Long-term Use of Steroids Discussed with patient the risks and benefits of steroid for managing the rheumatic condition Benefits include: - Reduced pain, improved mobility, increased participation in activities, and decreased progression of disease Risks include: - GI upset, potential ultrasound worsening or formation (especially in patients > 65 years old), elevated blood pressure/worsening hypertension, elevated blood sugar/worsening diabetes control, worsening of bone density, elevated lipids/worsening triglycerides, cataract formation, weight gain Recommended using proton pump inhibitors (PPIs) for the duration of steroid use to reduce the risk of gastric ulcers and vitamin-D daily to reduce the risk of osteoporosis Labs checked: A1c, T spot, hepatitis-B and C serologies Pneumocystis jiroveci prophylaxis: Patient with risk factors including steroids greater than 50 mg for more than 30 days, age greater than 60 years, and lung involvement from underlying rheumatic disease requires prophylaxis and will be given so (3) Encounter for monitoring of belimumab therapy: Code(s): Z51.81 - Encounter for therapeutic drug level monitoring; Z79.620 - correction (current) use of immunosuppressive biologic Plan: #correction Belimumab Discussed with patient the risks and benefits of hydroxychloroquine in managing the rheumatic condition Benefits include: - Reduced pain, reduce mortality, maintenance of remission and reduction of flares Risks include: - insomnia, injection site reactions, psychiatric events such as worsening depression/anxiety or suicidal ideation, increased risk of infection (4) Encounter for monitoring azathioprine therapy: Code(s): Z51.81 - Encounter for therapeutic drug level monitoring; Z79.624 - correction (current) use of inhibitors of nucleotide synthesis Plan: #Long-term use of azathioprine Discussed with patient the benefits and risks of azathioprine for the management of the rheumatic condition Benefits include: ? - Reduced pain, maintenance of remission and reduction of flares Risks include: - Bone marrow suppression, GI upset, lymphoma, hepatotoxicity, pancreatitis, hypersensitivity syndrome TPMT enzyme: ordered 02/07/25 Drug monitoring: CBC every 4 weeks for the 1st 3 months then CBC BMP LFTs every 3 months Avoid concomitant sulfasalazine, allopurinol or febuxostat Plan I spent 45 minutes reviewing the record and labs (discharge information), taking a history, examining the patient, discussing the treatment plan and documenting in the medical record Orders: Orders Complement C4 Today M32.9 - Systemic lupus erythematosus, unspecified Anti DNA DS Antibody Today M32.9 - Systemic lupus erythematosus, unspecified Complete Blood Count Auto Diff 4 Months M32.9 - Systemic lupus erythematosus, unspecified Erythrocyte Sedimentation Rate 4 Months M32.9 - Systemic lupus erythematosus, unspecified Complement C4 4 Months M32.9 - Systemic lupus erythematosus, unspecified Anti DNA DS Antibody 4 Months M32.9 - Systemic lupus erythematosus, unspecified Protein Creatinine Ratio, Ur 4 Months M32.9 - Systemic lupus erythematosus, unspecified Prom[employer] TPMT Enzyme Today M32.9 - Systemic lupus erythematosus, unspecified Complement C3 Today M32.9 - Systemic lupus erythematosus, unspecified UA ClnCatch+Micro w/rflx Cult Today M32.9 - Systemic lupus erythematosus, unspecified Protein Creatinine Ratio, Ur Today M32.9 - Systemic lupus erythematosus, unspecified Comprehensive Met. Panel 4 Months M32.9 - Systemic lupus erythematosus, unspecified C Reactive Protein 4 Months M32.9 - Systemic lupus erythematosus, unspecified Complement C3 4 Months M32.9 - Systemic lupus erythematosus, unspecified UA ClnCatch+Micro w/rflx Cult 4 Months M32.9 - Systemic lupus erythematosus, unspecified Medications: New prednisone Take 4 tablets daily for 1 week then 3 tablets daily for 1 week then 2 tablets for 1 week then 1 tablet for 1 week then stop 5 mg PO DIRECTED 70 tabs 0RF M3.9 - Systemic lupus erythematosus, unspecified azathioprine 150 mg (1.5 x 100 mg) PO DAILY 135 tabs 1RF 90 days M3. - Systemic lupus erythematosus, unspecified Coding Level of Care Code Est Pt Level 5 (72696) Complex EM visit Add On G2211 Diagnoses Lupus M32.9 intermediate frame tender systemic steroid user Z79.52 Encounter for monitoring of belimumab therapy Z51.81; Z79.620 Encounter for monitoring azathioprine therapy Z51.81; Z79.624
[2025-02-07 09:34] VITALS: BP 120/80; PULSE 115; O2SAT 97; BMI 30.1
== END 2025-02-07 10:24 | disposition home or self-care (01) ==
LOC: HO.RHES 09:15
PROVIDERS: PCP Nurse Practitioner Family; Visit Provider Student in an Organized Health Care Education/Training Program
DX: M32.9 Systemic lupus erythematosus, unspecified (principal); Z79.52 Long term (current) use of systemic steroids; Z51.81 Encounter for therapeutic drug level monitoring; Z79.620 Long term (current) use of immunosuppressive biologic; Z79.624 Long term (current) use of inhibitors of nucleotide synthesis
CPT/HCPCS: 99215

== ENCOUNTER 2025-02-07 10:31 | Outpatient (REF) | payer OTHER, SELFPAY ==
[2025-02-07 13:29] LABS: Appearance Urine Clear; Glucose Urine UA Negative (Negative); PH 5.5 (5.0-9.0); Specific Gravity - Urine 1.020 (1.005-1.025)
[2025-02-07 14:12] LABS: Protein/Creatinine Ratio, Ur 0.08 (<0.2); Total Protein Urine Random 9 mg/dL (<12)
== END 2025-02-07 10:32 | disposition home or self-care (01) ==
LOC: HO.HKASLDS 10:31
PROVIDERS: Visit Provider Student in an Organized Health Care Education/Training Program
DX: M32.9 Systemic lupus erythematosus, unspecified (principal)
CPT/HCPCS: 36415; 81001; 82570; 84156; 86160; 86225